=== PATIENT | male | born 1960 | race Caucasian/White ===

== ENCOUNTER 2020-02-15 19:32 | Emergency (ER) | payer BC ==
[2020-02-15] MEDS ORDERED: Lactated Ringers 1,000 ML IV ONE (20:12)
[2020-02-15] MEDS ORDERED: Ondansetron 4 MG/2 ML SDV IVPUSH ONE (20:12)
--- NOTE | 2020-02-15 20:26 | EDM.PDOC ---
ED HPI GENERAL MEDICAL PROBLEM - General Chief Complaint: Fever Stated Complaint: FEVER CHILLS VOMITING Time Seen by Provider: 02/15/20 20:08 - History of Present Illness INITIAL COMMENTS - FREE TEXT/NARRATIVE: 59-year-old male presents the emergency room with fevers chills nausea and vomiting. This has been going on for several days now. He was seen in the clinic yesterday no specific diagnosis his labs look good he had a COVID test done that was negative. Patient continues to have fevers abdominal discomfort nausea and vomiting. Patient also has a headache, and he states his has been having some headaches as well but much milder. The patient may have diminished smell and taste capabilities. He does bring up that he has been working with some birds, some [employer] and wonders if he could have caught something from them. He did notice a lot of the birds had been dying. Generalized Pain Score (Numeric/FACES): 8 - Related Data Allergies Allergy/AdvReac Type Severity Reaction Status Date / Time oseltamivir [From Tamiflu] Allergy Fatigue Verified 02/15/20 19:50 Penicillins Allergy Cannot Verified 02/15/20 19:50 Remember vancomycin Allergy Cannot Verified 02/15/20 19:50 Remember Home Meds: Home Meds Aspirin [Halfprin] 81 mg PO DAILY 03/10/19 [History] Metoprolol Succinate [Toprol Xl] 100 mg PO DAILY 03/10/19 [History] Cholecalciferol (Vitamin D3) [Vitamin D3] 4,000 unit PO DAILY 02/15/20 [History] Green Tea [place] Extract [Green Tea Extract] 500 mg PO DAILY 02/15/20 [History] Past Medical History HEENT History: Reports: Impaired Vision Other HEENT History: wears glasses Other Gastrointestinal History: spleenectomy and bowel obstruction - Past Surgical History HEENT Surgical History: Reports: Eye Surgery GI Surgical History: Reports: Appendectomy Social & Family History - Tobacco Use Smoking Status *Q: Never Smoker - Caffeine Use Caffeine Use: Reports: Soda, Tea - Recreational Drug Use Recreational Drug Use: No ED ROS GENERAL - Review of Systems Review Of Systems: See Below Constitutional: Reports: Weakness, Fatigue. Denies: No Symptoms, Fever, Chills HEENT: Reports: No Symptoms Respiratory: Reports: No Symptoms Cardiovascular: Reports: No Symptoms GI/Abdominal: Reports: Constipation, Nausea, Vomiting. Denies: Black Stool, Bloody Stool : Reports: No Symptoms Musculoskeletal: Reports: No Symptoms Skin: Reports: No Symptoms Neurological: Reports: Headache. Denies: No Symptoms, Confusion, Dizziness, Numbness Psychiatric: Reports: No Symptoms Hematologic/Lymphatic: Reports: No Symptoms Immunologic: Reports: No Symptoms ED EXAM, GENERAL - Physical Exam Exam: See Below Exam Limited By: No Limitations General Appearance: Alert, No Apparent Distress, Other (Mild tachycardia no acute distress) Eye Exam: Bilateral Eye: Normal Inspection Ears: Normal External Exam, Normal Canal, Hearing Grossly Normal, Normal TMs Nose: Normal Inspection, Normal Mucosa, No Blood Throat/Mouth: Normal Inspection, Normal Lips, Normal Teeth, Normal Gums, Normal Oropharynx, Normal Voice, No Airway Compromise Head: Atraumatic, Normocephalic Neck: Normal Inspection, Supple, Non-Tender, Full Range of Motion. No: Lymphadenopathy (L), Lymphadenopathy (R) Respiratory/Chest: No Respiratory Distress, Lungs Clear, Normal Breath Sounds Cardiovascular: Regular Rate, Rhythm, No Edema, No Murmur GI/Abdominal: Normal Bowel Sounds, Soft, Non-Tender Back Exam: Normal Inspection. No: CVA Tenderness (L), CVA Tenderness (R) Extremities: Normal Inspection, No Pedal Edema Neurological: Alert, Oriented, Normal Cognition Skin Exam: Warm, Dry, Intact Course - Vital Signs Last Recorded V/S: Last Vital Signs Temp 37.2 C 02/15/20 19:47 Pulse 105 H 02/15/20 19:47 Resp 16 02/15/20 19:47 BP 106/72 02/15/20 19:47 Pulse Ox 96 02/15/20 19:47 - Orders/Labs/Meds Orders: Active Orders 24 hr Category Date Time Status CORONAVIRUS COVID-19 PCR [facility] Stat Lab 02/15/20 21:40 Received Labs: Laboratory Tests 02/15/20 02/15/20 02/15/20 Range/Units 19:55 20:30 20:30 WBC 10.69 H (4.23-9.07) K/mm3 RBC 4.74 (4.63-6.08) M/mm3 Hgb 15.6 (13.7-17.5) gm/dl Hct 44.8 (40.1-51.0) % MCV 94.5 H (79.0-92.2) fl MCH 32.9 H (25.7-32.2) pg MCHC 34.8 (32.2-35.5) g/dl RDW Std Deviation 51.7 H (35.1-43.9) fL Plt Count 159 L (163-337) K/mm3 MPV 11.9 (9.4-12.3) fl Neut % (Auto) 69.5 H (34.0-67.9) % Lymph % (Auto) 15.3 L (21.8-53.1) % [place] % (Auto) 14.6 H (5.3-12.2) % Eos % (Auto) 0.1 L (0.8-7.0) Baso % (Auto) 0.3 (0.1-1.2) % Neut # (Auto) 7.43 H (1.78-5.38) K/mm3 Lymph # (Auto) 1.64 (1.32-3.57) K/mm3 [place] # (Auto) 1.56 H (0.30-0.82) K/mm3 Eos # (Auto) 0.01 L (0.04-0.54) K/mm3 Baso # (Auto) 0.03 (0.01-0.08) K/mm3 Manual Slide Review Abnormal smear Sodium 135 L (136-145) mEq/L Potassium 3.8 (3.5-5.1) mEq/L Chloride 100 (98-107) mEq/L Carbon Dioxide 24 (21-32) mEq/L Anion Gap 14.8 (5-15) BUN 17 (7-18) mg/dL Creatinine 1.2 (0.7-1.3) mg/dL Est Cr Clr Drug Dosing TNP Estimated GFR (MDRD) > 60 (>60) mL/min BUN/Creatinine Ratio 14.2 (14-18) Glucose 123 H (80-115) mg/dL Calcium 8.7 (8.5-10.1) mg/dL Total Bilirubin 0.6 (0.2-1.0) mg/dL AST 38 H (15-37) U/L ALT 62 (16-63) U/L Alkaline Phosphatase 48 (46-116) U/L Total Protein 7.5 (6.4-8.2) g/dl Albumin 3.6 (3.4-5.0) g/dl Globulin 3.9 gm/dL Albumin/Globulin Ratio 0.9 L (1-2) Lipase 108 (73-393) U/L Urine Color Yellow (Yellow) Urine Appearance Clear (Clear) Urine pH 5.5 (5.0-8.0) Ur Specific [place] 1.025 (1.005-1.030) Urine Protein Negative (Negative) Urine Glucose (UA) Negative (Negative) Urine Ketones Negative (Negative) Urine Occult Blood Negative (Negative) Urine Nitrite Negative (Negative) Urine Bilirubin Negative (Negative) Urine Urobilinogen 0.2 (0.2-1.0) Ur Leukocyte Esterase Negative (Negative) Urine RBC 0-5 (0-5) /hpf Urine WBC 0-5 (0-5) /hpf Ur Squamous Epith Cells 0-5 (0-5) /hpf Urine Bacteria Rare (FEW) /hpf Urine Mucus Moderate H (FEW) /hpf Meds: Medications Discontinued Medications Generic Name Dose Route Start Last Admin Trade Name Freq PRN Reason Stop Dose Admin Lactated Ringer's 1,000 mls @ 999 mls/hr 02/15/20 20:12 02/15/20 20:32 Ringers, Lactated IV 02/15/20 21:12 999 mls/hr .BOLUS ONE Administration Ondansetron HCl 4 mg 02/15/20 20:12 02/15/20 20:32 Zofran IVPUSH 02/15/20 20:13 4 mg ONETIME ONE Administration - Re-Assessments/Exams Free Text/Narrative Re-Assessment/Exam: 02/15/20 21:34 Laboratory evaluation is really unremarkable he is got a minimally elevated white count. He is doing a little better with some IV fluids. With his exposure to the birds that could be carriers of Salmonella but did discuss possibility of a Salmonella meningitis this is exceedingly rare in adults and he has absolutely no evidence of nuchal rigidity in the sitting position he has absolutely no restriction in his neck motion or neck tenderness with motion. However did offer to evaluate him for this he would like to hold off on this at this point understanding that it involves a CT and LP. With further discussion I am not convinced he has intact smell and taste we will screen him for COVID albeit he had a negative COVID screen yesterday. Departure - Departure Time of Disposition: 21:36 Disposition: Home, Self-Care 01 Clinical Impression: Gastroenteritis - Discharge Information Instructions: Viral Gastroenteritis, Adult, [id number] Referrals: Michelle Allison MD [Primary Care Provider] - Forms: ED Department Discharge Additional Instructions: Return to the emergency room with any questions problems or worsening symptoms. Clear liquid diet for the next 24 hours and then slowly advance as tolerated. From the machine out the waiting room have given you #10 Zofran tablets these will dissolve on or under your tongue use 1 every 6 hours as needed for nausea and vomiting. Follow-up with your regular physician the middle of this next week if needed. You have been screened for COVID the results of this should be back by Sunday or Sunday. With this pandemic it is recommended that you stay fairly well isolated and absolutely symptom-free for at least 72 hours after you have had no fevers or no symptoms. Sepsis Event Note (ED) - Evaluation Sepsis Screening Result: Possible Sepsis Risk - My Orders Last 24 Hours: My Active Orders 02/15/20 21:40 CORONAVIRUS COVID-19 PCR [facility] Stat - Assessment/Plan Last 24 Hours: My Active Orders 02/15/20 21:40 CORONAVIRUS COVID-19 PCR [facility] Stat
== END 2020-02-15 21:54 | disposition home or self-care (01) ==
LOC: JD.ED 19:32
DX: K52.9 Noninfective gastroenteritis and colitis, unspecified (principal); Z88.1 Allergy status to other antibiotic agents; Z88.0 Allergy status to penicillin; Z79.82 Long term (current) use of aspirin; Z20.828 Contact with and (suspected) exposure to other viral communicable diseases
CPT/HCPCS: 36415; 80053; 81001; 83690; 85025; 87635; 96361; 96374; 99284; J2405; J7120; 99283; U0002

== ENCOUNTER 2020-02-18 03:36 | Inpatient (IN) | payer BC, OTHER ==
--- NOTE | 2020-02-18 03:44 | EDM.PDOC ---
ED HPI GENERAL MEDICAL PROBLEM - General Chief Complaint: General Stated Complaint: [facility] Time Seen by Provider: 02/18/20 03:43 - History of Present Illness INITIAL COMMENTS - FREE TEXT/NARRATIVE: 59-year-old male brought in by EMS after developing significant lightheadedness with standing up. Shortly before arrival the patient tried to stand up to go to the bathroom and developed significant lightheadedness. He saw stars and was barely able to catch himself. The patient was diagnosed with acute gastroenteritis couple of days ago started on Zofran the nausea is doing much better but he still has persistent diarrhea. EMS got a rhythm strip that showed that he was in atrial fibrillation. Upon arrival here he was still in atrial fibrillation rate in the low 100s to 130. The patient has a history of hypotension perhaps related to taking Toprol XL 100 mg a day. He takes this because about 12 years ago when he was started on it the top part of his heart was doing something different than the bottom part of his heart as he puts it. The patient is not on blood thinners. He has no history of hypertension coronary artery disease or diabetes. The patient feels weak and tired. He does state at times he comes back and rest of the house because his heart feels tired. Treatments DIRECTOR METABOLISM: Reports: IV/IO - Related Data Allergies Allergy/AdvReac Type Severity Reaction Status Date / Time oseltamivir [From Tamiflu] Allergy Fatigue Verified 02/18/20 20:15 Penicillins Allergy Cannot Verified 02/18/20 20:15 Remember vancomycin Allergy Cannot Verified 02/18/20 20:15 Remember Home Meds: Home Meds Aspirin [Halfprin] 81 mg PO DAILY 03/10/19 [History] Metoprolol Succinate [Toprol Xl] 100 mg PO DAILY 03/10/19 [History] Cholecalciferol (Vitamin D3) [Vitamin D3] 4,000 unit PO DAILY 02/15/20 [History] Green Tea [place] Extract [Green Tea Extract] 500 mg PO DAILY 02/15/20 [History] Ascorbic Acid [Vitamin C] 500 mg PO DAILY 02/18/20 [History] Multivit-Min/Folic/Vit K/Lycop [Men's Multivitamin Tablet] 1 tab PO DAILY 02/18/20 [History] Saw/Vit E/Sod [place]/Lyc/Beta/Pyg [Prostate Health Caplet] 1 tab PO DAILY 02/18/20 [History] Past Medical History HEENT History: Reports: Impaired Vision Other HEENT History: wears glasses Other Gastrointestinal History: spleenectomy and bowel obstruction - Past Surgical History HEENT Surgical History: Reports: Eye Surgery GI Surgical History: Reports: Appendectomy Social & Family History - Caffeine Use Caffeine Use: Reports: Soda, Tea ED ROS GENERAL - Review of Systems Review Of Systems: See Below Constitutional: Reports: Malaise, Weakness, Fatigue. Denies: Fever, Chills HEENT: Reports: No Symptoms Respiratory: Reports: No Symptoms Cardiovascular: Reports: Blood Pressure Problem (He often has low blood pressure). Denies: Chest Pain, Dyspnea on Exertion, Edema Endocrine: Reports: No Symptoms GI/Abdominal: Reports: Diarrhea, Nausea (Nausea well controlled with Zofran) : Reports: No Symptoms Musculoskeletal: Reports: No Symptoms Skin: Reports: No Symptoms Neurological: Reports: No Symptoms ED EXAM, GENERAL - Physical Exam Exam: See Below Exam Limited By: No Limitations General Appearance: Alert, No Apparent Distress, Other (He has an obvious A. fib on the monitor rate 100-130s ) Head: Atraumatic, Normocephalic Neck: Normal Inspection, Supple, Non-Tender, Full Range of Motion Respiratory/Chest: No Respiratory Distress, Lungs Clear, Normal Breath Sounds Cardiovascular: Regular Rate, Rhythm, No Edema, No Murmur GI/Abdominal: Normal Bowel Sounds, Soft, Tender (Discomfort no localizing symptoms discomfort is fairly mild) Back Exam: Normal Inspection. No: CVA Tenderness (L), CVA Tenderness (R) Extremities: Normal Inspection, No Pedal Edema Course - Vital Signs Last Recorded V/S: Last Vital Signs Temp 37.1 C 02/19/20 04:35 Pulse 65 02/19/20 04:35 Resp 20 02/19/20 01:41 BP 120/54 L 02/19/20 01:41 Pulse Ox 91 L 02/19/20 04:35 - Orders/Labs/Meds Orders: Medication Orders Acetaminophen (Tylenol) 650 mg PO Q4H PRN PRN Reason: Pain (Mild 1-3)/fever Last Admin: 02/19/20 01:35 Dose: 650 mg Documented by: Admin: 02/18/20 19:22 Dose: 650 mg Documented by: Admin: 02/18/20 11:21 Dose: 650 mg Documented by: RIRI Aspirin (Halfprin) 81 mg PO DAILY [facility] Digoxin (Lanoxin) 125 mcg PO DAILY [facility] Enoxaparin Sodium (Lovenox) 40 mg SUBCUT Q24H [facility] Last Admin: 02/18/20 11:20 Dose: 40 mg Documented by: RIRI Ceftriaxone Sodium 2 gm/ (Sodium Chloride) 100 mls @ 200 mls/hr IV Q24H [facility] Doxycycline Hyclate 100 mg/ (Sodium Chloride) 100 mls @ 100 mls/hr IV Q12HR [facility] Ibuprofen (Motrin) 600 mg PO Q6H PRN PRN Reason: Pain/Fever Last Admin: 02/19/20 04:36 Dose: 600 mg Documented by: DOROTA Ondansetron HCl (Zofran) 4 mg IV Q4H PRN PRN Reason: Nausea/Vomiting Last Admin: 02/18/20 12:15 Dose: 4 mg Documented by: RIRI Labs: Laboratory Tests 02/18/20 02/18/20 02/18/20 Range/Units 03:41 03:41 03:41 WBC 10.54 H (4.23-9.07) K/mm3 RBC 4.70 (4.63-6.08) M/mm3 Hgb 15.3 (13.7-17.5) gm/dl Hct 44.7 (40.1-51.0) % MCV 95.1 H (79.0-92.2) fl MCH 32.6 H (25.7-32.2) pg MCHC 34.2 (32.2-35.5) g/dl RDW Std Deviation 52.5 H (35.1-43.9) fL Plt Count 164 (163-337) K/mm3 MPV 12.3 (9.4-12.3) fl Neut % (Auto) 66.2 (34.0-67.9) % Lymph % (Auto) 17.9 L (21.8-53.1) % [place] % (Auto) 15.4 H (5.3-12.2) % Eos % (Auto) 0.1 L (0.8-7.0) Baso % (Auto) 0.2 (0.1-1.2) % Neut # (Auto) 6.98 H (1.78-5.38) K/mm3 Lymph # (Auto) 1.89 (1.32-3.57) K/mm3 [place] # (Auto) 1.62 H (0.30-0.82) K/mm3 Eos # (Auto) 0.01 L (0.04-0.54) K/mm3 Baso # (Auto) 0.02 (0.01-0.08) K/mm3 Manual Slide Review Abnormal smear PT 11.9 (9.7-12.0) SECONDS INR 1.11 APTT 29 (22-31) SECONDS Sodium 135 L (136-145) mEq/L Potassium 3.8 (3.5-5.1) mEq/L Chloride 100 (98-107) mEq/L Carbon Dioxide 25 (21-32) mEq/L Anion Gap 13.8 (5-15) BUN 17 (7-18) mg/dL Creatinine 1.6 H (0.7-1.3) mg/dL Est Cr Clr Drug Dosing 56.37 mL/min Estimated GFR (MDRD) 44 (>60) mL/min BUN/Creatinine Ratio 10.6 L (14-18) Glucose 123 H (80-115) mg/dL Calcium 8.8 (8.5-10.1) mg/dL Magnesium 2.0 (1.8-2.4) mg/dl Total Bilirubin 0.8 (0.2-1.0) mg/dL AST 42 H (15-37) U/L ALT 64 H (16-63) U/L Alkaline Phosphatase 49 (46-116) U/L Troponin I < 0.017 (0.00-0.056) ng/mL Total Protein 7.2 (6.4-8.2) g/dl Albumin 3.3 L (3.4-5.0) g/dl Globulin 3.9 gm/dL Albumin/Globulin Ratio 0.9 L (1-2) COVID-19 (TAMARA) (NEGATIVE) 02/18/20 Range/Units 07:05 WBC (4.23-9.07) K/mm3 RBC (4.63-6.08) M/mm3 Hgb (13.7-17.5) gm/dl Hct (40.1-51.0) % MCV (79.0-92.2) fl MCH (25.7-32.2) pg MCHC (32.2-35.5) g/dl RDW Std Deviation (35.1-43.9) fL Plt Count (163-337) K/mm3 MPV (9.4-12.3) fl Neut % (Auto) (34.0-67.9) % Lymph % (Auto) (21.8-53.1) % [place] % (Auto) (5.3-12.2) % Eos % (Auto) (0.8-7.0) Baso % (Auto) (0.1-1.2) % Neut # (Auto) (1.78-5.38) K/mm3 Lymph # (Auto) (1.32-3.57) K/mm3 [place] # (Auto) (0.30-0.82) K/mm3 Eos # (Auto) (0.04-0.54) K/mm3 Baso # (Auto) (0.01-0.08) K/mm3 Manual Slide Review PT (9.7-12.0) SECONDS INR APTT (22-31) SECONDS Sodium (136-145) mEq/L Potassium (3.5-5.1) mEq/L Chloride (98-107) mEq/L Carbon Dioxide (21-32) mEq/L Anion Gap (5-15) BUN (7-18) mg/dL Creatinine (0.7-1.3) mg/dL Est Cr Clr Drug Dosing mL/min Estimated GFR (MDRD) (>60) mL/min BUN/Creatinine Ratio (14-18) Glucose (80-115) mg/dL Calcium (8.5-10.1) mg/dL Magnesium (1.8-2.4) mg/dl Total Bilirubin (0.2-1.0) mg/dL AST (15-37) U/L ALT (16-63) U/L Alkaline Phosphatase (46-116) U/L Troponin I (0.00-0.056) ng/mL Total Protein (6.4-8.2) g/dl Albumin (3.4-5.0) g/dl Globulin gm/dL Albumin/Globulin Ratio (1-2) COVID-19 ([facility]ARA) Negative (NEGATIVE) Meds: Medications Generic Name Dose Route Start Last Admin Trade Name Freq PRN Reason Stop Dose Admin Acetaminophen 650 mg 0812/20 10:52 02/19/20 01:35 Tylenol PO 650 mg Q4H PRN Administration Pain (Mild 1-3)/fever Aspirin 81 mg 02/19/20 09:00 Halfprin PO DAILY [facility] Digoxin 125 mcg 02/19/20 09:00 Lanoxin PO DAILY [facility] Enoxaparin Sodium 40 mg 02/18/20 12:00 02/18/20 11:20 Lovenox SUBCUT 40 mg Q24H [facility] Administration Ceftriaxone Sodium 2 gm/ 100 mls @ 200 mls/hr 02/19/20 07:30 Sodium Chloride IV Q24H [facility] Doxycycline Hyclate 100 mg/ 100 mls @ 100 mls/hr 02/19/20 09:00 Sodium Chloride IV Q12HR [facility] Ibuprofen 600 mg 02/19/20 03:58 02/19/20 04:36 Motrin PO 600 mg Q6H PRN Administration Pain/Fever Ondansetron HCl 4 mg 02/18/20 10:52 02/18/20 12:15 Zofran IV 4 mg Q4H PRN Administration Nausea/Vomiting Discontinued Medications Generic Name Dose Route Start Last Admin Trade Name Freq PRN Reason Stop Dose Admin Digoxin 250 mcg 02/18/20 05:10 02/18/20 05:35 Lanoxin PO 02/18/20 05:11 250 mcg ONETIME ONE Administration Digoxin 250 mcg 02/18/20 11:00 02/18/20 11:20 Lanoxin PO 02/18/20 11:01 250 mcg ONETIME ONE Administration Lactated Ringer's 500 mls @ 999 mls/hr 02/18/20 03:53 02/18/20 03:59 Ringers, Lactated IV 02/18/20 04:23 999 mls/hr .BOLUS ONE Administration Lactated Ringer's 1,000 mls @ 125 mls/hr 02/18/20 04:00 02/18/20 11:23 Ringers, Lactated IV 125 mls/hr ASDIRECTED [facility] Administration Sodium Chloride 500 mls @ 999 mls/hr 02/18/20 05:02 02/18/20 05:15 Normal Saline IV 02/18/20 05:32 999 mls/hr .BOLUS ONE Administration - Re-Assessments/Exams Free Text/Narrative Re-Assessment/Exam: 02/18/20 05:11 I have attempted to 500 cc boluses with LR to try and get his pulse rate a l ittle more controllable his blood pressure goes up and he is getting the fluid but in between boluses comes back down. It is unclear to me how long he has been in A. fib he has been on the Toprol for probably 12 years as it was explained to him the top part of the heart is doing some different from the bottom part of the heart. He has no history of coronary artery disease no diabetes. He has a low chads 2 score. I discussed the situation with Dr. 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 The patient does have problems with really low blood pressure and perhaps with the addition of digoxin we can back off his Toprol-XL. Departure - Departure Time of Disposition: 08:00 Disposition: Refer to Observation Clinical Impression: A-fib, Dehydration - Discharge Information Sepsis Event Note (ED) - Evaluation Sepsis Screening Result: No Definite Risk
[2020-02-18] MEDS ORDERED: Lactated Ringers 500 ML IV ONE (03:53)
[2020-02-18] MEDS ORDERED: Lactated Ringers 1,000 ML IV SCH (04:00)
[2020-02-18] MEDS ORDERED: Sodium Chloride 0.9% 500 ML IV ONE (05:02)
[2020-02-18] MEDS ORDERED: Digoxin 250 MCG Tab PO ONE ×2 (05:10→11:00)
--- NOTE | 2020-02-18 09:13 | CR ---
Cysts chest: Portable view of the chest was obtained. Comparison: Prior chest CT study of 03/10/19, no previous chest x-ray is available. Heart size and mediastinum are normal. Lungs are clear with no acute parenchymal change. Bony structures are grossly intact. Impression: 1. Nothing acute is appreciated on portable chest x-ray. Diagnostic code #1 This report was dictated in MDT
[2020-02-18] MEDS ORDERED: Ondansetron 4 MG/2 ML SDV IV PRN (10:52)
[2020-02-18] MEDS: Enoxaparin 40 MG/0.4 ML Syringe SUBCUT SCH (11:20)
[2020-02-18] MEDS: Acetaminophen 325 MG Tab PO PRN ×2 (11:21→19:22)
--- NOTE | 2020-02-18 12:58 | PCM.HP.2 ---
H&P History of Present Illness - General Date of Service: 02/18/20 Admit Problem/Dx: Admission Diagnosis/Problem Admission Diagnosis/Problem Atrial fibrillation - History of Present Illness Initial Comments - Free Text/Narative: 59-year-old male with a 5-day history of generalized malaise, fever, chills, headache, and mild cough. Patient states that last night he had worsening dizziness and lightheadedness. He felt like he was on fire in his scalp was burning. He was seen at the clinic 4 days ago, in the emergency department 3 days ago, and presented last night to the emergency department again. All 3 t imes he had a negative COVID test. He states he continues to have a fever which has been greater than 100 and shaking chills. He states he had nausea and vomiting over the weekend that stopped yesterday, but he did develop some diarrhea. 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 He has not had a bowel movement since arriving at the emergency department. Chest x-ray in the emergency department was negative. He is on Toprol-XL secondary to irregular heart rate. He states he was started on it approximately 12 years ago. He denies hypertension, coronary artery disease, or diabetes. He has never been placed on a blood thinner. In the emergency department he was found to be in A. fib with his rate in the low 100s up to 130. Patient was given a 500 mL normal saline bolus and started on 125 mL an hour. Emergency department provider called Dr. Roberson, hematology supervisor at [facility] in [place] who recommended starting patient on digoxin 0.25 mg now and then again in 6 hours. Then continue with 0.125 mg daily as well as aggressive fluid management. When patient was brought to the floor for observation his heart rate stabilized mostly in the 80s and converted to sinus rhythm pulse ox did drop into the upper 80s between 87-89. He was started on 2 L nasal cannula. He received his second dose of digoxin. Initial lab work was only significant for WBC of 10.54, creatinine of 1.6, estimated GFR 44, AST 42, ALT 64. COVID was negative. - Related Data Allergies/Adverse Reactions: Allergies Allergy/AdvReac Type Severity Reaction Status Date / Time oseltamivir [From Tamiflu] Allergy Fatigue Verified 02/18/20 03:41 Penicillins Allergy Cannot Verified 02/18/20 03:41 Remember vancomycin Allergy Cannot Verified 02/18/20 03:41 Remember Home Medications: Home Meds Aspirin [Halfprin] 81 mg PO DAILY 03/10/19 [History] Metoprolol Succinate [Toprol Xl] 100 mg PO DAILY 03/10/19 [History] Cholecalciferol (Vitamin D3) [Vitamin D3] 4,000 unit PO DAILY 02/15/20 [History] Green Tea [place] Extract [Green Tea Extract] 500 mg PO DAILY 02/15/20 [History] Past Medical History HEENT History: Reports: Impaired Vision Other HEENT History: wears glasses Cardiovascular History: Reports: Afib Other Gastrointestinal History: spleenectomy and bowel obstruction Musculoskeletal History: Reports: Other (See Below) Other Musculoskeletal History: cortisone shot to left elbow every 4 months for "tennis elbow" Neurological History: Reports: Headaches, Chronic - Infectious Disease History Infectious Disease History: Reports: None - Past Surgical History HEENT Surgical History: Reports: Eye Surgery GI Surgical History: Reports: Appendectomy Social & Family History - Tobacco Use Smoking Status *Q: Never Smoker Used Tobacco, but Quit: Yes Month/Year Tobacco Last Used: 1982 - Caffeine Use Caffeine Use: Reports: Soda - Recreational Drug Use Recreational Drug Use: No H&P Review of Systems - Review of Systems: Review Of Systems: Comprehensive ROS is negative, except as noted in HPI. Exam - Exam Exam: See Below - Vital Signs Vital Signs: Last Vital Signs Temp 98.1 F 02/18/20 08:25 Pulse 84 02/18/20 11:20 Resp 24 H 02/18/20 08:25 BP 120/68 02/18/20 08:25 Pulse Ox 93 L 02/18/20 08:25 Weight: 106.912 kg - Exam Quality Assessment: Supplemental Oxygen HEENT: Conjunctiva Clear, Hearing Intact, Mucosa Moist & [place] Neck: Supple, Trachea Midline, 2 Lungs: Clear to Auscultation, Normal Respiratory Effort Cardiovascular: Regular Rate, Regular Rhythm GI/Abdominal Exam: Normal Bowel Sounds, Soft, Non-Tender, No Organomegaly, No Distention, No Abnormal Bruit Back Exam: Normal Inspection Extremities: Normal Inspection, Normal Range of Motion, Non-Tender, No Pedal Edema, Normal Capillary Refill Peripheral Pulses: 2+: Posterior Tibial (L), Posterior Tibial (R), Dorsalis Pedis (L), Dorsalis Pedis (R) Skin: Warm, Dry, Intact Neurological: Cranial Nerves Intact Neuro Extensive - Mental Status: Alert, Oriented x3 Neuro Extensive - Motor, Sensory, Reflexes: CN II-XII Intact Psychiatric: Alert, Normal Affect, Normal Mood - Patient Data Lab Results Last 24 hrs: Laboratory Results - last 24 hr 02/18/20 02/18/20 02/18/20 Range/Units 03:41 03:41 03:41 WBC 10.54 H (4.23-9.07) K/mm3 RBC 4.70 (4.63-6.08) M/mm3 Hgb 15.3 (13.7-17.5) gm/dl Hct 44.7 (40.1-51.0) % MCV 95.1 H (79.0-92.2) fl MCH 32.6 H (25.7-32.2) pg MCHC 34.2 (32.2-35.5) g/dl RDW Std Deviation 52.5 H (35.1-43.9) fL Plt Count 164 (163-337) K/mm3 MPV 12.3 (9.4-12.3) fl Neut % (Auto) 66.2 (34.0-67.9) % Lymph % (Auto) 17.9 L (21.8-53.1) % [place] % (Auto) 15.4 H (5.3-12.2) % Eos % (Auto) 0.1 L (0.8-7.0) Baso % (Auto) 0.2 (0.1-1.2) % Neut # (Auto) 6.98 H (1.78-5.38) K/mm3 Lymph # (Auto) 1.89 (1.32-3.57) K/mm3 [place] # (Auto) 1.62 H (0.30-0.82) K/mm3 Eos # (Auto) 0.01 L (0.04-0.54) K/mm3 Baso # (Auto) 0.02 (0.01-0.08) K/mm3 Manual Slide Review Abnormal smear PT 11.9 (9.7-12.0) SECONDS INR 1.11 APTT 29 (22-31) SECONDS Sodium 135 L (136-145) mEq/L Potassium 3.8 (3.5-5.1) mEq/L Chloride 100 (98-107) mEq/L Carbon Dioxide 25 (21-32) mEq/L Anion Gap 13.8 (5-15) BUN 17 (7-18) mg/dL Creatinine 1.6 H (0.7-1.3) mg/dL Est Cr Clr Drug Dosing 56.37 mL/min Estimated GFR (MDRD) 44 (>60) mL/min BUN/Creatinine Ratio 10.6 L (14-18) Glucose 123 H (80-115) mg/dL Calcium 8.8 (8.5-10.1) mg/dL Magnesium 2.0 (1.8-2.4) mg/dl Total Bilirubin 0.8 (0.2-1.0) mg/dL AST 42 H (15-37) U/L ALT 64 H (16-63) U/L Alkaline Phosphatase 49 (46-116) U/L Troponin I < 0.017 (0.00-0.056) ng/mL Total Protein 7.2 (6.4-8.2) g/dl Albumin 3.3 L (3.4-5.0) g/dl Globulin 3.9 gm/dL Albumin/Globulin Ratio 0.9 L (1-2) COVID-19 (TAMARA) (NEGATIVE) 02/18/20 02/18/20 Range/Units 07:05 09:58 WBC (4.23-9.07) K/mm3 RBC (4.63-6.08) M/mm3 Hgb (13.7-17.5) gm/dl Hct (40.1-51.0) % MCV (79.0-92.2) fl MCH (25.7-32.2) pg MCHC (32.2-35.5) g/dl RDW Std Deviation (35.1-43.9) fL Plt Count (163-337) K/mm3 MPV (9.4-12.3) fl Neut % (Auto) (34.0-67.9) % Lymph % (Auto) (21.8-53.1) % [place] % (Auto) (5.3-12.2) % Eos % (Auto) (0.8-7.0) Baso % (Auto) (0.1-1.2) % Neut # (Auto) (1.78-5.38) K/mm3 Lymph # (Auto) (1.32-3.57) K/mm3 [place] # (Auto) (0.30-0.82) K/mm3 Eos # (Auto) (0.04-0.54) K/mm3 Baso # (Auto) (0.01-0.08) K/mm3 Manual Slide Review PT (9.7-12.0) SECONDS INR APTT (22-31) SECONDS Sodium 139 (136-145) mEq/L Potassium 4.6 (3.5-5.1) mEq/L Chloride 103 (98-107) mEq/L Carbon Dioxide 27 (21-32) mEq/L Anion Gap 13.6 (5-15) BUN 16 (7-18) mg/dL Creatinine 1.3 (0.7-1.3) mg/dL Est Cr Clr Drug Dosing 69.38 mL/min Estimated GFR (MDRD) 56 (>60) mL/min BUN/Creatinine Ratio 12.3 L (14-18) Glucose 106 (80-115) mg/dL Calcium 8.8 (8.5-10.1) mg/dL Magnesium (1.8-2.4) mg/dl Total Bilirubin (0.2-1.0) mg/dL AST (15-37) U/L ALT (16-63) U/L Alkaline Phosphatase (46-116) U/L Troponin I < 0.017 (0.00-0.056) ng/mL Total Protein (6.4-8.2) g/dl Albumin (3.4-5.0) g/dl Globulin gm/dL Albumin/Globulin Ratio (1-2) COVID-19 (TAMARA) Negative (NEGATIVE) Result Diagrams: 02/18/20 03:41 02/18/20 09:58 EKG INTERPRETATION EKG Date: 02/18/20 Time: 03:39 Rhythm: A-Fib Rate (Beats/Min): 116 [place]: Normal P-Wave: Absent QRS: Other (PVC, abn R wave progression) QT: Normal Sepsis Event Note - Evaluation Sepsis Screening Result: No Definite Risk - Focused Exam Vital Signs: Vital Signs Temp Temp Pulse Pulse Resp BP BP 02/18/20 11:20 84 02/18/20 08:25 98.1 F 65 24 H 120/68 02/18/20 05:35 110 H 02/18/20 03:38 97.7 F 114 H 12 95/65 Pulse Ox 02/18/20 11:20 02/18/20 08:25 93 L 02/18/20 05:35 02/18/20 03:38 88 L Problem List Initiated/Reviewed/Updated: Yes Orders Last 24hrs: Active Orders 24 hr Category Date Time Status Admission Status [Patient Status] [ADT] Routine ADT 02/18/20 07:35 Active Oxygen Therapy [RC] PRN Care 02/18/20 10:52 Active Up With Assistance [RC] ASDIRECTED Care 02/18/20 10:52 Active VTE/DVT Education [RC] PER UNIT ROUTINE Care 02/18/20 10:52 Active Vital Signs [RC] Q4H Care 02/18/20 10:52 Active Heart Healthy Diet [DIET] Diet 02/18/20 Lunch Active CBC WITH AUTO DIFF [HEME] AM Lab 02/19/20 05:11 Ordered COMPREHENSIVE METABOLIC PN,CMP [CHEM] AM Lab 02/19/20 05:11 Ordered MAGNESIUM [CHEM] AM Lab 02/19/20 05:11 Ordered Acetaminophen [Tylenol] Med 02/18/20 10:52 Active 650 mg PO Q4H PRN Aspirin [Halfprin] Med 02/19/20 09:00 Active 81 mg PO DAILY Enoxaparin [Lovenox] Med 02/18/20 12:00 Active 40 mg SUBCUT Q24H Lactated Ringers [Ringers, Lactated] 1,000 ml Med 02/18/20 04:00 Active IV ASDIRECTED Ondansetron [Zofran] Med 02/18/20 10:52 Active 4 mg IV Q4H PRN Resuscitation Status Routine Resus Stat 02/18/20 10:52 Ordered Medication Orders Acetaminophen (Tylenol) 650 mg PO Q4H PRN PRN Reason: Pain (Mild 1-3)/fever Last Admin: 02/18/20 11:21 Dose: 650 mg Documented by: RIRI Aspirin (Halfprin) 81 mg PO DAILY FREDI Enoxaparin Sodium (Lovenox) 40 mg SUBCUT Q24H FREDI Last Admin: 02/18/20 11:20 Dose: 40 mg Documented by: RIRI Lactated Ringer's (Ringers, Lactated) 1,000 mls @ 125 mls/hr IV ASDIRECTED FREDI Last Admin: 02/18/20 11:23 Dose: 125 mls/hr Documented by: RIRI Ondansetron HCl (Zofran) 4 mg IV Q4H PRN PRN Reason: Nausea/Vomiting Last Admin: 02/18/20 12:15 Dose: 4 mg Documented by: RIRI Assessment/Plan Comment:: Assessment * Atrial fibrillation with rapid ventricular response * Converted to sinus rhythm after second dose of digoxin 250 mcg * Morning dose of Toprol was held * Repeat EKG at 1312 hrs.: Sinus rhythm with ventricular rate of 87 bpm. Left atrial enlargement. * [id number] is 0 * Gastroenteritis/viral illness * Patient appears to be improved. * He is afebrile and has not vomited or had a bowel movement since presentation to the emergency department * Electrolytes are normal * COVID PCR negative x3 * Acute renal injury * Estimated GFR 44 * Creatinine 1.6 Plan * Observation * Telemetry * Digoxin 0.125 daily * Hold Toprol for now * Low-dose aspirin 81 mg daily * Recheck electrolytes and renal function * Lipid panel in the morning * IV fluids: LR 125 mL an hour. * Echocardiogram * Regular diet as tolerated * CODE STATUS: Full code * VTE prophylaxis with Lovenox * Length of stay less than 48 hours - Mortality Measure Prognosis:: Good
[2020-02-19] MEDS: Acetaminophen 325 MG Tab PO PRN ×2 (01:35→08:54)
[2020-02-19] MEDS ORDERED: Ibuprofen 600 MG Tab PO PRN (03:58)
--- NOTE | 2020-02-19 08:54 | CR ---
Chest: Portable view of the chest was obtained. Comparison: Prior chest x-ray of 02/18/20. Heart size and mediastinum are within normal limits for portable technique. Surgical clips are seen within the left upper abdomen. Lungs are clear with no acute parenchymal change. No gross bony abnormality is appreciated. Impression: 1. Nothing acute is seen on portable chest x-ray. Diagnostic code #1 This report was dictated in MDT I agree with preliminary report from [facility], finalized on 02/19/20, 4:20 AM Central Daylight Time
[2020-02-19] MEDS: Digoxin 125 MCG Tab PO SCH (08:55)
[2020-02-19] MEDS: cefTRIAXone 2 GM in Sodium Chloride 0.9% 100 ML IV SCH (08:55)
[2020-02-19] MEDS: Aspirin 81 MG Tab.EC PO SCH (08:55)
--- NOTE | 2020-02-19 09:52 | CT ---
CT chest Technique: Multiple axial sections through the chest are obtained. Intravenous contrast was utilized. Study performed as a pulmonary protocol. Comparison: Prior chest CT study of 03/10/19 and chest x-ray of 02/19/20 at time 2:15 AM. Findings: Pulmonary arteries are moderately well-opacified. No filling defects are seen within the main or segmental branches or proximal subsegmental branches. Smaller distal subsegmental pulmonary emboli could be missed. Aorta shows no aneurysm. Mediastinum and hilar regions show no adenopathy. No axillary adenopathy is appreciated. Areas of atelectasis is seen within both posterior lung bases. Trace pleural effusions are seen within both lung bases. Scattered areas of pleural thickening are also noted. No acute parenchymal process is definitely appreciated. Impression: 1. No findings of pulmonary embolism within the main, segmental or proximal subsegmental branches. Smaller distal subsegmental pulmonary emboli could be missed. 2. Trace pleural effusions with mild bibasilar atelectasis. 3. Scattered areas of pleural thickening are noted. Diagnostic code #3 Agree with preliminary report issued by [facility], preliminary report finalized on 02/19/20, 6:45 AM Central Time This report was dictated in [place] Standard Time
[2020-02-19] MEDS: Doxycycline 100 MG in Sodium Chloride 0.9% 100 ML IV SCH ×2 (10:01→20:28)
--- NOTE | 2020-02-19 12:11 | PCM.PN ---
- General Info Date of Service: 02/19/20 Admission Dx/Problem (Free Text): Admission Diagnosis/Problem Admission Diagnosis/Problem Atrial fibrillation Subjective Update: Patient states he feels a little better this morning. Unfortunately, he has required increasing in his FiO2 to 5 L/min. Overnight he had low-grade fevers, T-max 100.6, chills, and sweats. Patient had lab work which showed an elevated d-dimer just over 1, ferritin of 1500, normal LDL, and C-reactive protein of 9.8. Patient did convert to sinus rhythm yesterday and has been maintained in sinus rhythm. He is complaining of some dysuria and foul-smelling urine. - Review of Systems General: Reports: Fever, Chills, Night Sweats HEENT: Reports: No Symptoms Pulmonary: Reports: Shortness of Breath Cardiovascular: Reports: No Symptoms Gastrointestinal: Reports: No Symptoms Musculoskeletal: Reports: No Symptoms Skin: Reports: No Symptoms Neurological: Reports: No Symptoms - Patient Data Vitals - Most Recent: Last Vital Signs Temp 97.7 F 02/19/20 11:02 Pulse 68 02/19/20 11:02 Resp 20 02/19/20 11:02 BP 121/65 02/19/20 11:02 Pulse Ox 94 L 02/19/20 11:02 Weight - Most Recent: 106.685 kg I&O - Last 24 Hours: Intake & Output 02/18/20 02/19/20 02/19/20 22:59 06:59 14:59 Intake Total 2353 1720 Output Total 475 975 Balance 1878 745 Imaging Impressions - Last 24 Hours: Chest x-ray with nothing acute. CT angiogram 1. No findings of pulmonary embolism within the main, segmental, or proximal subsegmental branches. Smaller distal and subsegmental pulmonary emboli could be missed. 2. Trace pleural effusions with mild bibasilar atelectasis. 3. Scattered areas of pleural thickening are noted. Lab Results Last 24 Hours: Laboratory Results - last 24 hr 02/19/20 02/19/20 02/19/20 Range/Units 02:30 02:30 02:30 WBC 9.52 H (4.23-9.07) K/mm3 RBC 4.26 L (4.63-6.08) M/mm3 Hgb 13.9 (13.7-17.5) gm/dl Hct 40.3 (40.1-51.0) % MCV 94.6 H (79.0-92.2) fl MCH 32.6 H (25.7-32.2) pg MCHC 34.5 (32.2-35.5) g/dl RDW Std Deviation 52.0 H (35.1-43.9) fL Plt Count 174 (163-337) K/mm3 MPV 11.9 (9.4-12.3) fl Neut % (Auto) 72.7 H (34.0-67.9) % Lymph % (Auto) 16.8 L (21.8-53.1) % [place] % (Auto) 9.8 (5.3-12.2) % Eos % (Auto) 0.1 L (0.8-7.0) Baso % (Auto) 0.4 (0.1-1.2) % Neut # (Auto) 6.92 H (1.78-5.38) K/mm3 Lymph # (Auto) 1.60 (1.32-3.57) K/mm3 [place] # (Auto) 0.93 H (0.30-0.82) K/mm3 Eos # (Auto) 0.01 L (0.04-0.54) K/mm3 Baso # (Auto) 0.04 (0.01-0.08) K/mm3 Manual Slide Review Abnormal smear D-Dimer, Quantitative 1.16 H (0.19-0.50) mg/L Sodium 136 (136-145) mEq/L Potassium 3.6 (3.5-5.1) mEq/L Chloride 100 (98-107) mEq/L Carbon Dioxide 24 (21-32) mEq/L Anion Gap 15.6 H (5-15) BUN 13 (7-18) mg/dL Creatinine 1.1 (0.7-1.3) mg/dL Est Cr Clr Drug Dosing 81.99 mL/min Estimated GFR (MDRD) > 60 (>60) mL/min BUN/Creatinine Ratio 11.8 L (14-18) Glucose 135 H (80-115) mg/dL Lactic Acid (0.4-2.0) mmol/L Calcium 8.2 L (8.5-10.1) mg/dL Magnesium 1.8 (1.8-2.4) mg/dl Ferritin (26-388) ng/ml Total Bilirubin 0.7 (0.2-1.0) mg/dL AST 37 (15-37) U/L ALT 58 (16-63) U/L Alkaline Phosphatase 40 L (46-116) U/L Lactate Dehydrogenase (85-227) U/L C-Reactive Protein (<1.0) mg/dL Total Protein 6.4 (6.4-8.2) g/dl Albumin 2.8 L (3.4-5.0) g/dl Globulin 3.6 gm/dL Albumin/Globulin Ratio 0.8 L (1-2) Triglycerides 109 (<150) mg/dL Cholesterol 135 (<200) mg/dL LDL Cholesterol Direct 94 (<100) mg/dL HDL Cholesterol 15.0 L (40-59) mg/dL SARS Virus RNA (PCR) (NEGATIVE) 02/19/20 02/19/20 02/19/20 Range/Units 02:30 02:30 04:50 WBC (4.23-9.07) K/mm3 RBC (4.63-6.08) M/mm3 Hgb (13.7-17.5) gm/dl Hct (40.1-51.0) % MCV (79.0-92.2) fl MCH (25.7-32.2) pg MCHC (32.2-35.5) g/dl RDW Std Deviation (35.1-43.9) fL Plt Count (163-337) K/mm3 MPV (9.4-12.3) fl Neut % (Auto) (34.0-67.9) % Lymph % (Auto) (21.8-53.1) % [place] % (Auto) (5.3-12.2) % Eos % (Auto) (0.8-7.0) Baso % (Auto) (0.1-1.2) % Neut # (Auto) (1.78-5.38) K/mm3 Lymph # (Auto) (1.32-3.57) K/mm3 [place] # (Auto) (0.30-0.82) K/mm3 Eos # (Auto) (0.04-0.54) K/mm3 Baso # (Auto) (0.01-0.08) K/mm3 Manual Slide Review D-Dimer, Quantitative (0.19-0.50) mg/L Sodium (136-145) mEq/L Potassium (3.5-5.1) mEq/L Chloride (98-107) mEq/L Carbon Dioxide (21-32) mEq/L Anion Gap (5-15) BUN (7-18) mg/dL Creatinine (0.7-1.3) mg/dL Est Cr Clr Drug Dosing mL/min Estimated GFR (MDRD) (>60) mL/min BUN/Creatinine Ratio (14-18) Glucose (80-115) mg/dL Lactic Acid 1.1 (0.4-2.0) mmol/L Calcium (8.5-10.1) mg/dL Magnesium (1.8-2.4) mg/dl Ferritin 1563 H (26-388) ng/ml Total Bilirubin (0.2-1.0) mg/dL AST (15-37) U/L ALT (16-63) U/L Alkaline Phosphatase (46-116) U/L Lactate Dehydrogenase 174 (85-227) U/L C-Reactive Protein 9.8 H* (<1.0) mg/dL Total Protein (6.4-8.2) g/dl Albumin (3.4-5.0) g/dl Globulin gm/dL Albumin/Globulin Ratio (1-2) Triglycerides (<150) mg/dL Cholesterol (<200) mg/dL LDL Cholesterol Direct (<100) mg/dL HDL Cholesterol (40-59) mg/dL SARS Virus RNA (PCR) (NEGATIVE) 02/19/20 Range/Units 07:35 WBC (4.23-9.07) K/mm3 RBC (4.63-6.08) M/mm3 Hgb (13.7-17.5) gm/dl Hct (40.1-51.0) % MCV (79.0-92.2) fl MCH (25.7-32.2) pg MCHC (32.2-35.5) g/dl RDW Std Deviation (35.1-43.9) fL Plt Count (163-337) K/mm3 MPV (9.4-12.3) fl Neut % (Auto) (34.0-67.9) % Lymph % (Auto) (21.8-53.1) % [place] % (Auto) (5.3-12.2) % Eos % (Auto) (0.8-7.0) Baso % (Auto) (0.1-1.2) % Neut # (Auto) (1.78-5.38) K/mm3 Lymph # (Auto) (1.32-3.57) K/mm3 [place] # (Auto) (0.30-0.82) K/mm3 Eos # (Auto) (0.04-0.54) K/mm3 Baso # (Auto) (0.01-0.08) K/mm3 Manual Slide Review D-Dimer, Quantitative (0.19-0.50) mg/L Sodium (136-145) mEq/L Potassium (3.5-5.1) mEq/L Chloride (98-107) mEq/L Carbon Dioxide (21-32) mEq/L Anion Gap (5-15) BUN (7-18) mg/dL Creatinine (0.7-1.3) mg/dL Est Cr Clr Drug Dosing mL/min Estimated GFR (MDRD) (>60) mL/min BUN/Creatinine Ratio (14-18) Glucose (80-115) mg/dL Lactic Acid (0.4-2.0) mmol/L Calcium (8.5-10.1) mg/dL Magnesium (1.8-2.4) mg/dl Ferritin (26-388) ng/ml Total Bilirubin (0.2-1.0) mg/dL AST (15-37) U/L ALT (16-63) U/L Alkaline Phosphatase (46-116) U/L Lactate Dehydrogenase (85-227) U/L C-Reactive Protein (<1.0) mg/dL Total Protein (6.4-8.2) g/dl Albumin (3.4-5.0) g/dl Globulin gm/dL Albumin/Globulin Ratio (1-2) Triglycerides (<150) mg/dL Cholesterol (<200) mg/dL LDL Cholesterol Direct (<100) mg/dL HDL Cholesterol (40-59) mg/dL SARS Virus RNA (PCR) Negative (NEGATIVE) Med Orders - Current: Current Medications Acetaminophen (Tylenol) 650 mg PO Q4H PRN PRN Reason: Pain (Mild 1-3)/fever Last Admin: 02/19/20 08:54 Dose: 650 mg Documented by: Aspirin (Halfprin) 81 mg PO DAILY [facility] Last Admin: 02/19/20 08:55 Dose: 81 mg Documented by: Dexamethasone (Dexamethasone) 6 mg PO DAILY [facility] Stop: 02/29/20 11:31 Digoxin (Lanoxin) 125 mcg PO DAILY [facility] Last Admin: 02/19/20 08:55 Dose: 125 mcg Documented by: Enoxaparin Sodium (Lovenox) 40 mg SUBCUT Q24H [facility] Last Admin: 02/18/20 11:20 Dose: 40 mg Documented by: Ceftriaxone Sodium 2 gm/ (Sodium Chloride) 100 mls @ 200 mls/hr IV Q24H [facility] Last Admin: 02/19/20 08:55 Dose: 200 mls/hr Documented by: Doxycycline Hyclate 100 mg/ (Sodium Chloride) 100 mls @ 100 mls/hr IV Q12HR [facility] Last Admin: 02/19/20 10:01 Dose: 100 mls/hr Documented by: Ibuprofen (Motrin) 600 mg PO Q6H PRN PRN Reason: Pain/Fever Last Admin: 02/19/20 04:36 Dose: 600 mg Documented by: Ondansetron HCl (Zofran) 4 mg IV Q4H PRN PRN Reason: Nausea/Vomiting Last Admin: 02/18/20 12:15 Dose: 4 mg Documented by: Discontinued Medications Digoxin (Lanoxin) 250 mcg PO ONETIME ONE Stop: 02/18/20 05:11 Last Admin: 02/18/20 05:35 Dose: 250 mcg Documented by: Digoxin (Lanoxin) 250 mcg PO ONETIME ONE Stop: 02/18/20 11:01 Last Admin: 02/18/20 11:20 Dose: 250 mcg Documented by: Lactated Ringer's (Ringers, Lactated) 500 mls @ 999 mls/hr IV .BOLUS ONE Stop: 02/18/20 04:23 Last Admin: 02/18/20 03:59 Dose: 999 mls/hr Documented by: Lactated Ringer's (Ringers, Lactated) 1,000 mls @ 125 mls/hr IV ASDIRECTED [facility] Last Admin: 02/18/20 11:23 Dose: 125 mls/hr Documented by: Sodium Chloride (Normal Saline) 500 mls @ 999 mls/hr IV .BOLUS ONE Stop: 02/18/20 05:32 Last Admin: 02/18/20 05:15 Dose: 999 mls/hr Documented by: - Exam Quality Assessment: Supplemental Oxygen General: Alert, Oriented HEENT: Pupils Equal, Mucous Membr. Moist/[place] Neck: Supple Lungs: Clear to Auscultation, Normal Respiratory Effort Cardiovascular: Regular Rate, Regular Rhythm GI/Abdominal Exam: Normal Bowel Sounds, Soft, Non-Tender, No Organomegaly, No Distention, No Abnormal Bruit Extremities: Normal Inspection, Normal Range of Motion, Non-Tender, No Pedal Edema, Normal Capillary Refill Peripheral Pulses: 2+: Posterior Tibial (L), Posterior Tibial (R), Dorsalis Pedis (L), Dorsalis Pedis (R) Skin: Warm, Dry, Intact Neurological: No New Focal Deficit Psy/Mental Status: Alert, Normal Affect, Normal Mood Sepsis Event Note - Evaluation Sepsis Screening Result: No Definite Risk - Focused Exam Vital Signs: Vital Signs Temp Pulse Resp BP Pulse Ox 02/19/20 11:02 97.7 F 68 20 121/65 94 L 02/19/20 10:01 92 L 02/19/20 08:55 90 02/19/20 08:39 97.5 F 83 20 101/59 L 92 L 02/19/20 04:35 98.8 F 65 91 L 02/19/20 04:31 65 89 L 02/19/20 03:42 100.4 F 68 91 L 02/19/20 02:02 78 91 L 02/19/20 01:51 79 88 L 02/19/20 01:41 99.3 F 74 20 120/54 L 87 L - Problem List Review Problem List Initiated/Reviewed/Updated: Yes - My Orders Last 24 Hours: My Active Orders 02/18/20 12:00 Enoxaparin [Lovenox] 40 mg SUBCUT Q24H 02/18/20 13:08 EKG 12 Lead [EK] Stat 02/19/20 02:30 MYCOPLASMA PNEUMONIAE IGM AB [CHEM] Urgent 02/19/20 03:58 Ibuprofen [Motrin] 600 mg PO Q6H PRN 02/19/20 03:59 Blood Culture x2 Reflex Set [OM.PC] Stat 02/19/20 04:00 Isolation [COMM] Routine 02/19/20 04:40 CULTURE BLOOD [BC] Stat 02/19/20 04:50 CULTURE BLOOD [BC] Stat 02/19/20 07:30 cefTRIAXone [Rocephin] 2 gm Sodium Chloride 0.9% [Normal Saline] 100 ml IV Q24H 02/19/20 09:00 Aspirin [Halfprin] 81 mg PO DAILY Digoxin [Lanoxin] 125 mcg PO DAILY Doxycycline [Vibramycin] 100 mg Sodium Chloride 0.9% [Normal Saline] 100 ml IV Q12HR 02/19/20 09:41 UA W/KATERIN RFLX IF INDICATED [URIN] Routine 02/19/20 10:38 Admission Status [Patient Status] [ADT] Routine 02/19/20 10:40 LEGIONELLA ANTIGEN [MREF] Routine RESPIRATORY PANEL Routine STREP PNEUMONIAE ANTIGEN [MREF] Routine 02/19/20 11:16 Consult to Occupational Therapy [OT Evaluation and Treatment] [CONS] Routine PT Evaluation and Treatment [CONS] Routine 02/19/20 11:30 dexAMETHasone 6 mg PO DAILY - Assessment Assessment:: Assessment 02/18/2020day of admission * Atrial fibrillation with rapid ventricular response * Converted to sinus rhythm after second dose of digoxin 250 mcg * Morning dose of Toprol was held * Repeat EKG at 1312 hrs.: Sinus rhythm with ventricular rate of 87 bpm. Left atrial enlargement. * [id number] is 0 * Gastroenteritis/viral illness * Patient appears to be improved. * He is afebrile and has not vomited or had a bowel movement since presentation to the emergency department * Electrolytes are normal * COVID PCR negative x3 * Acute renal injury * Estimated GFR 44 * Creatinine 1.6 02/19/2020 * Atrial fibrillation with rapid ventricular responseresolved * Patient is still in sinus rhythm with rate in the 80s to 90s * Loaded with digoxin yesterday. Now on 125 mcg daily * Stopped Toprol-XL * Awaiting echocardiogram results * Likely COVID-19 infection with hypoxemia * Patient has had worsening of oxygenation, elevated ferritin, positive d- dimer, elevated C-reactive protein and a normal white count. Although he has had 4 - COVID test he still has several suggestive features of COVID- 19. * I spoke with Dr. Renae in infectious disease at [facility] for [facility] in [place] who agreed that he still likely has COVID-19 and recommended starting remdesivir and steroids. * I was able to contact Amira at the [facility] department and she is sending a full course of remdesivir via [employer]. He will get the first course as soon as we get it. * GI symptoms have significantly improved. * Dysuria with mild foul-smelling urine * UA negative for infection * Likely not clinically significant * Acute renal injury resolved * Estimated GFR greater than 60 - Plan Plan:: Plan * Change to inpatient status on telemetry * Start remdesivir as soon as available * Dexamethasone 6 mg orally daily for 10 days * Encourage prone positioning * If oxygen need increases will switch to high flow nasal cannula * Follow C-reactive protein, CMP, CBC, CRP * 25 hydroxy vitamin D * Continue digoxin 0.125 daily * Stop Toprol * Low-dose aspirin 81 mg daily * DC IV fluids * Echocardiogrampending * Regular diet as tolerated * Follow fluid status closely * Respiratory droplet precaution * CODE STATUS: Full code * VTE prophylaxis with Lovenox * Length of stay likely several days
[2020-02-19] MEDS: Enoxaparin 40 MG/0.4 ML Syringe SUBCUT SCH (13:14)
[2020-02-19] MEDS: Dexamethasone 4 MG Tab PO SCH (13:15)
[2020-02-19] MEDS ORDERED: REMDESIVIR 200 MG in Sodium Chloride 0.9% 250 ML IV ONE (15:04)
[2020-02-20] MEDS: cefTRIAXone 2 GM in Sodium Chloride 0.9% 100 ML IV SCH (08:07)
[2020-02-20] MEDS: Aspirin 81 MG Tab.EC PO SCH (08:20)
[2020-02-20] MEDS: Digoxin 125 MCG Tab PO SCH (08:20)
[2020-02-20] MEDS: Dexamethasone 4 MG Tab PO SCH (08:22)
[2020-02-20] MEDS: Doxycycline 100 MG in Sodium Chloride 0.9% 100 ML IV SCH ×2 (09:16→20:00)
--- NOTE | 2020-02-20 09:54 | PCM.PN ---
- General Info Date of Service: 02/20/20 Admission Dx/Problem (Free Text): Admission Diagnosis/Problem Admission Diagnosis/Problem Atrial fibrillation Subjective Update: Patient states he had a difficult night. He was anxious and had difficulty sleeping. He did start dexamethasone yesterday. He denies any worsening of shortness of breath. He did have 2 bowel movements yesterday. Patient was afebrile last night but did have 2 episodes of night sweats. Patient has been self pronating. His oxygen requirement has decreased from 5 L down to 2 L nasal cannula. Functional Status: Reports: Pain Controlled - Review of Systems General: Reports: Fatigue, Night Sweats HEENT: Reports: No Symptoms Pulmonary: Reports: Shortness of Breath Cardiovascular: Reports: No Symptoms Gastrointestinal: Reports: No Symptoms Neurological: Reports: No Symptoms Psychiatric: Reports: Anxiety - Patient Data Vitals - Most Recent: Last Vital Signs Temp 96.6 F L 02/20/20 08:00 Pulse 92 02/20/20 08:20 Resp 16 02/20/20 03:31 BP 98/66 02/20/20 08:22 Pulse Ox 94 L 02/20/20 08:22 Weight - Most Recent: 106.141 kg I&O - Last 24 Hours: Intake & Output 02/19/20 02/20/20 02/20/20 22:59 06:59 14:59 Intake Total 670 1000 Output Total 1400 350 Balance -730 650 Lab Results Last 24 Hours: Laboratory Results - last 24 hr 02/19/20 02/19/20 02/20/20 Range/Units 02:30 13:20 08:10 WBC 9.80 H (4.23-9.07) K/mm3 RBC 4.80 (4.63-6.08) M/mm3 Hgb 15.5 D (13.7-17.5) gm/dl Hct 45.5 (40.1-51.0) % MCV 94.8 H (79.0-92.2) fl MCH 32.3 H (25.7-32.2) pg MCHC 34.1 (32.2-35.5) g/dl RDW Std Deviation 53.1 H (35.1-43.9) fL Plt Count 242 (163-337) K/mm3 MPV 12.5 H (9.4-12.3) fl Neut % (Auto) 71.9 H (34.0-67.9) % Lymph % (Auto) 18.0 L (21.8-53.1) % Roosevelt % (Auto) 9.1 (5.3-12.2) % Eos % (Auto) 0 L (0.8-7.0) Baso % (Auto) 0.7 (0.1-1.2) % Neut # (Auto) 7.05 H (1.78-5.38) K/mm3 Lymph # (Auto) 1.76 (1.32-3.57) K/mm3 Roosevelt # (Auto) 0.89 H (0.30-0.82) K/mm3 Eos # (Auto) 0.00 L (0.04-0.54) K/mm3 Baso # (Auto) 0.07 (0.01-0.08) K/mm3 Manual Slide Review Normal smear D-Dimer, Quantitative (0.19-0.50) mg/L Sodium (136-145) mEq/L Potassium (3.5-5.1) mEq/L Chloride (98-107) mEq/L Carbon Dioxide (21-32) mEq/L Anion Gap (5-15) BUN (7-18) mg/dL Creatinine (0.7-1.3) mg/dL Est Cr Clr Drug Dosing mL/min Estimated GFR (MDRD) (>60) mL/min BUN/Creatinine Ratio (14-18) Glucose (80-115) mg/dL Calcium (8.5-10.1) mg/dL Phosphorus (2.6-4.7) mg/dL Magnesium (1.8-2.4) mg/dl Total Bilirubin (0.2-1.0) mg/dL AST (15-37) U/L ALT (16-63) U/L Alkaline Phosphatase (46-116) U/L C-Reactive Protein (<1.0) mg/dL Total Protein (6.4-8.2) g/dl Albumin (3.4-5.0) g/dl Globulin gm/dL Albumin/Globulin Ratio (1-2) Urine Color Dark yellow (Yellow) Urine Appearance Clear (Clear) Urine pH 6.5 (5.0-8.0) Ur Specific Stand[place] 1.020 (1.005-1.030) Urine Protein Negative (Negative) Urine Glucose (UA) Negative (Negative) Urine Ketones Negative (Negative) Urine Occult Blood Negative (Negative) Urine Nitrite Negative (Negative) Urine Bilirubin Negative (Negative) Urine Urobilinogen 1.0 (0.2-1.0) Ur Leukocyte Esterase Negative (Negative) Mycoplasma pneumon IgM Negative (NEGATIVE) 02/20/20 02/20/20 Range/Units 08:10 08:10 WBC (4.23-9.07) K/mm3 RBC (4.63-6.08) M/mm3 Hgb (13.7-17.5) gm/dl Hct (40.1-51.0) % MCV (79.0-92.2) fl MCH (25.7-32.2) pg MCHC (32.2-35.5) g/dl RDW Std Deviation (35.1-43.9) fL Plt Count (163-337) K/mm3 MPV (9.4-12.3) fl Neut % (Auto) (34.0-67.9) % Lymph % (Auto) (21.8-53.1) % Roosevelt % (Auto) (5.3-12.2) % Eos % (Auto) (0.8-7.0) Baso % (Auto) (0.1-1.2) % Neut # (Auto) (1.78-5.38) K/mm3 Lymph # (Auto) (1.32-3.57) K/mm3 Roosevelt # (Auto) (0.30-0.82) K/mm3 Eos # (Auto) (0.04-0.54) K/mm3 Baso # (Auto) (0.01-0.08) K/mm3 Manual Slide Review D-Dimer, Quantitative 1.27 H (0.19-0.50) mg/L Sodium 141 (136-145) mEq/L Potassium 4.0 (3.5-5.1) mEq/L Chloride 102 (98-107) mEq/L Carbon Dioxide 28 (21-32) mEq/L Anion Gap 15.0 (5-15) BUN 14 (7-18) mg/dL Creatinine 1.1 (0.7-1.3) mg/dL Est Cr Clr Drug Dosing 81.99 mL/min Estimated GFR (MDRD) > 60 (>60) mL/min BUN/Creatinine Ratio 12.7 L (14-18) Glucose 112 (80-115) mg/dL Calcium 9.1 (8.5-10.1) mg/dL Phosphorus 3.3 (2.6-4.7) mg/dL Magnesium 2.2 (1.8-2.4) mg/dl Total Bilirubin 0.5 (0.2-1.0) mg/dL AST 41 H (15-37) U/L ALT 63 (16-63) U/L Alkaline Phosphatase 49 (46-116) U/L C-Reactive Protein 11.6 H* (<1.0) mg/dL Total Protein 7.6 (6.4-8.2) g/dl Albumin 3.3 L (3.4-5.0) g/dl Globulin 4.3 gm/dL Albumin/Globulin Ratio 0.8 L (1-2) Urine Color (Yellow) Urine Appearance (Clear) Urine pH (5.0-8.0) Ur Specific Stand[place] (1.005-1.030) Urine Protein (Negative) Urine Glucose (UA) (Negative) Urine Ketones (Negative) Urine Occult Blood (Negative) Urine Nitrite (Negative) Urine Bilirubin (Negative) Urine Urobilinogen (0.2-1.0) Ur Leukocyte Esterase (Negative) Mycoplasma pneumon IgM (NEGATIVE) Aburey Results Last 24 Hours: Microbiology 02/19/20 04:50 Aerobic Blood Culture - Preliminary Blood - Venous - Lab Draw NO GROWTH AFTER 1 DAY Anaerobic Blood Culture - Preliminary NO GROWTH AFTER 1 DAY 02/19/20 04:40 Aerobic Blood Culture - Preliminary Blood - Venous NO GROWTH AFTER 1 DAY Anaerobic Blood Culture - Preliminary NO GROWTH AFTER 1 DAY Med Orders - Current: Current Medications Acetaminophen (Tylenol) 650 mg PO Q4H PRN PRN Reason: Pain (Mild 1-3)/fever Last Admin: 02/19/20 08:54 Dose: 650 mg Documented by: Aspirin (Halfprin) 81 mg PO DAILY [facility] Last Admin: 02/20/20 08:20 Dose: 81 mg Documented by: Dexamethasone (Dexamethasone) 6 mg PO DAILY [facility] Stop: 02/28/20 09:01 Last Admin: 02/20/20 08:22 Dose: 6 mg Documented by: Digoxin (Lanoxin) 125 mcg PO DAILY [facility] Last Admin: 02/20/20 08:20 Dose: 125 mcg Documented by: Enoxaparin Sodium (Lovenox) 40 mg SUBCUT Q24H [facility] Last Admin: 02/19/20 13:14 Dose: 40 mg Documented by: Ceftriaxone Sodium 2 gm/ (Sodium Chloride) 100 mls @ 200 mls/hr IV Q24H [facility] Last Admin: 02/20/20 08:07 Dose: 200 mls/hr Documented by: Doxycycline Hyclate 100 mg/ (Sodium Chloride) 100 mls @ 100 mls/hr IV Q12HR [facility] Last Admin: 02/20/20 09:16 Dose: 100 mls/hr Documented by: REMDESIVIR (EUA) 100 mg/ (Sodium Chloride) 100 mls @ 100 mls/hr IV Q24H [facility] Stop: 02/23/20 16:14 Ibuprofen (Motrin) 600 mg PO Q6H PRN PRN Reason: Pain/Fever Last Admin: 02/19/20 04:36 Dose: 600 mg Documented by: Ondansetron HCl (Zofran) 4 mg IV Q4H PRN PRN Reason: Nausea/Vomiting Last Admin: 02/18/20 12:15 Dose: 4 mg Documented by: Discontinued Medications Digoxin (Lanoxin) 250 mcg PO ONETIME ONE Stop: 02/18/20 05:11 Last Admin: 02/18/20 05:35 Dose: 250 mcg Documented by: Digoxin (Lanoxin) 250 mcg PO ONETIME ONE Stop: 02/18/20 11:01 Last Admin: 02/18/20 11:20 Dose: 250 mcg Documented by: Lactated Ringer's (Ringers, Lactated) 500 mls @ 999 mls/hr IV .BOLUS ONE Stop: 02/18/20 04:23 Last Admin: 02/18/20 03:59 Dose: 999 mls/hr Documented by: Lactated Ringer's (Ringers, Lactated) 1,000 mls @ 125 mls/hr IV ASDIRECTED [facility] Last Admin: 02/18/20 11:23 Dose: 125 mls/hr Documented by: Sodium Chloride (Normal Saline) 500 mls @ 999 mls/hr IV .BOLUS ONE Stop: 02/18/20 05:32 Last Admin: 02/18/20 05:15 Dose: 999 mls/hr Documented by: REMDESIVIR (EUA) 200 mg/ (Sodium Chloride) 250 mls @ 250 mls/hr IV ONETIME ONE Stop: 02/19/20 15:05 Last Admin: 02/19/20 15:58 Dose: 250 mls/hr Documented by: - Exam Quality Assessment: Supplemental Oxygen General: Alert, Oriented HEENT: Pupils Equal, Pupils Reactive, EOMI, Mucous Membr. Moist/[place] Neck: Supple Lungs: Clear to Auscultation, Normal Respiratory Effort Cardiovascular: Regular Rate, Regular Rhythm GI/Abdominal Exam: Normal Bowel Sounds, Soft, Non-Tender, No Organomegaly, No Distention, No Abnormal Bruit Extremities: Normal Inspection, Normal Range of Motion, Non-Tender, No Pedal Edema, Normal Capillary Refill Skin: Warm, Dry, Intact Psy/Mental Status: Alert, Normal Affect, Normal Mood Sepsis Event Note - Evaluation Sepsis Screening Result: No Definite Risk - Focused Exam Vital Signs: Vital Signs Temp Pulse Resp BP BP Pulse Ox 02/20/20 08:22 98/66 94 L 02/20/20 08:20 92 93 L 02/20/20 08:00 96.6 F L 96 02/20/20 07:40 90 L 02/20/20 07:20 90 L 02/20/20 07:00 91 L 02/20/20 06:40 92 L 02/20/20 06:20 95 02/20/20 06:00 94 L 02/20/20 05:40 93 L 02/20/20 05:20 94 L 02/20/20 05:00 95 02/20/20 04:40 94 L 02/20/20 04:20 94 L 02/20/20 04:00 94 L 02/20/20 03:40 97 02/20/20 03:31 96.8 F L 16 118/77 96 02/20/20 03:00 96.5 F L 20 95 02/20/20 02:00 95 02/20/20 01:00 96 02/20/20 00:00 97.8 F 16 119/68 95 02/19/20 23:00 96 02/19/20 22:00 98 - Problem List Review Problem List Initiated/Reviewed/Updated: Yes - My Orders Last 24 Hours: My Active Orders 02/19/20 09:00 Aspirin [Halfprin] 81 mg PO DAILY Digoxin [Lanoxin] 125 mcg PO DAILY Doxycycline [Vibramycin] 100 mg Sodium Chloride 0.9% [Normal Saline] 100 ml IV Q12HR 02/19/20 10:38 Admission Status [Patient Status] [ADT] Routine 02/19/20 11:16 Consult to Occupational Therapy [OT Evaluation and Treatment] [CONS] Routine PT Evaluation and Treatment [CONS] Routine 02/19/20 11:30 dexAMETHasone 6 mg PO DAILY 02/19/20 13:20 LEGIONELLA ANTIGEN [MREF] Routine STREP PNEUMONIAE ANTIGEN [MREF] Routine 02/19/20 14:10 RESPIRATORY PANEL Routine 02/19/20 15:02 IS (RT) [RT Incentive Spirometry] [RC] ASDIRECTED 02/19/20 19:39 Admission Status [Patient Status] [ADT] Routine 02/20/20 08:10 PROCALCITONIN [REF] Stat 02/20/20 15:15 Remdesivir (Eua) [Remdesivir (EUA)] 100 mg Sodium Chloride 0.9% [Normal Saline] 100 ml IV Q24H 02/21/20 05:11 BASIC METABOLIC PANEL,BMP [CHEM] AM C-REACTIVE PROTEIN [CHEM] AM CBC WITH AUTO DIFF [HEME] AM D-DIMER QUANTITATIVE [COAG] AM MAGNESIUM [CHEM] AM PHOSPHORUS [CHEM] AM 02/22/20 05:11 C-REACTIVE PROTEIN [CHEM] AM 02/23/20 05:11 C-REACTIVE PROTEIN [CHEM] AM 02/24/20 05:11 C-REACTIVE PROTEIN [CHEM] AM 02/25/20 05:11 C-REACTIVE PROTEIN [CHEM] AM - Assessment Assessment:: Assessment 02/18/2020day of admission * Atrial fibrillation with rapid ventricular response * Converted to sinus rhythm after second dose of digoxin 250 mcg * Morning dose of Toprol was held * Repeat EKG at 1312 hrs.: Sinus rhythm with ventricular rate of 87 bpm. Left atrial enlargement. * [id number] is 0 * Gastroenteritis/viral illness * Patient appears to be improved. 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 * He is at increased risk for capsular bacterial infection 02/19/2020 * Atrial fibrillation with rapid ventricular responseresolved * Patient is still in sinus rhythm with rate in the 80s to 90s * Loaded with digoxin yesterday. Now on 125 mcg daily * Stopped Toprol-XL * Awaiting echocardiogram results * Likely COVID-19 infection with hypoxemia * Patient has had worsening of oxygenation, elevated ferritin, positive d- dimer, elevated C-reactive protein and a normal white count. Although he has had 4 - COVID test he still has several suggestive features of COVID- 19. * I spoke with Dr. Renae in infectious disease at [facility] for [facility] in [place] who agreed that he still likely has COVID-19 and recommended starting remdesivir and steroids. * I was able to contact Amira at the [facility] department and she is sending a full course of remdesivir via recruitment director. He will get the first course as soon as we get it. * GI symptoms have significantly improved. * Dysuria with mild foul-smelling urine * UA negative for infection * Likely not clinically significant * Acute renal injury resolved * Estimated GFR greater than 60 02/20/2020 * Likely COVID-19 infection with hypoxemia and bilateral pneumonia * Improvement in oxygen requirement * No significant change in CBC, d-dimer, or CMP. * Slight increase in C-reactive protein; 9.6-->11.6 * Currently getting remdesivir, day 2, and dexamethasone, day 2 * On Rocephin and doxycycline, day 2 * CT angiogram of the chest done yesterday showed bilateral pneumonia and atelectasis. * Pneumococcal urine antigen, Legionella, and respiratory panel pending * Mycoplasma IgM antibodies negative * Atrial fibrillation with rapid ventricular responseresolved * He continues in sinus rhythm. * Currently on digoxin 125 mcg daily * Toprol still held with good blood pressure and rate control * Awaiting echocardiogram results * Dysuriaresolved * UA normal * Acute renal injuryresolved * Estimated GFR greater than 60 * History of asplenia * Increased risk for capsular bacterial infections * On Rocephin and doxycycline * Pneumococcal urine antigen, Legionella, and respiratory panel pending - Plan Plan:: Plan * ICU * Day 2 of 5 of remdesivir * Day 2 of dexamethasone 6 mg orally daily for 10 days * Continue Rocephin and doxycycline * Encourage prone positioning * If oxygen need increases will switch to high flow nasal cannula * Follow CMP, CBC, CRP, mag, phosphorus, d-dimer * 25 hydroxy vitamin D * Digoxin level in the morning * I's and O's with goal of neutral fluid balance * Continue digoxin 0.125 daily * Stop Toprol * Low-dose aspirin 81 mg daily * DC IV fluids * Echocardiogrampending * Regular diet as tolerated * Follow fluid status closely * Respiratory droplet precaution * CODE STATUS: Full code * VTE prophylaxis with Lovenox * Length of stay likely several days
[2020-02-20] MEDS: Enoxaparin 40 MG/0.4 ML Syringe SUBCUT SCH (12:11)
[2020-02-20] MEDS: REMDESIVIR 100 MG in Sodium Chloride 0.9% 100 ML IV SCH (15:39)
[2020-02-20 18:41] LABS: BORDETELLA PARAPERT IS1001 Not Detected (Not Detected)
[2020-02-21] MEDS: cefTRIAXone 2 GM in Sodium Chloride 0.9% 100 ML IV SCH (07:53)
[2020-02-21] MEDS: Aspirin 81 MG Tab.EC PO SCH (08:01)
[2020-02-21] MEDS: Digoxin 125 MCG Tab PO SCH (08:02)
[2020-02-21] MEDS: Dexamethasone 4 MG Tab PO SCH (08:02)
[2020-02-21] MEDS: Enoxaparin 40 MG/0.4 ML Syringe SUBCUT SCH (08:09)
[2020-02-21] MEDS: Doxycycline 100 MG in Sodium Chloride 0.9% 100 ML IV SCH ×2 (08:21→20:17)
--- NOTE | 2020-02-21 13:00 | PCM.PN ---
- General Info Date of Service: 02/21/20 Subjective Update: Sleeping on and off every night, waking up at least 3 times each evening Tolerating diet BM today Breathing stable and mildly improved Denies pleuritic chest pain - Patient Data Vitals - Most Recent: Last Vital Signs Temp 96.8 F L 02/21/20 07:50 Pulse 98 02/21/20 08:02 Resp 18 02/21/20 07:51 BP 112/67 02/21/20 07:51 Pulse Ox 94 L 02/21/20 07:51 Weight - Most Recent: 106.141 kg - Exam Quality Assessment: Supplemental Oxygen General: Alert, Oriented, Cooperative, No Acute Distress HEENT: Pupils Equal, Pupils Reactive, EOMI, Mucous Membr. Moist/[place] Neck: Supple, Trachea Midline, No JVD. No: Lymphadenopathy Lungs: Clear to Auscultation, Normal Respiratory Effort. No: Crackles, Rales, Rhonchi, Rub, Stridor, Wheezing Cardiovascular: Regular Rate, Regular Rhythm. No: Murmurs, Gallops, Rubs GI/Abdominal Exam: Normal Bowel Sounds, Soft, Non-Tender, Distended. No: Guarding, Rigid, Rebound Extremities: Normal Inspection, Normal Range of Motion, Non-Tender, No Pedal Edema, Normal Capillary Refill Peripheral Pulses: 2+: Radial (L), Radial (R), Dorsalis Pedis (L), Dorsalis Pedis (R) Skin: Warm, Dry, Intact Neurological: No New Focal Deficit Psy/Mental Status: Normal Affect, Normal Mood Sepsis Event Note - Evaluation Sepsis Screening Result: No Definite Risk - Problem List & Annotations (1) Suspected COVID-19 virus infection SNOMED Code(s): 520320483 Code(s): Z20.828 - CONTACT W AND EXPOSURE TO OTH VIRAL COMMUNICABLE DISEASES Status: Acute Current Visit: Yes (2) Acute hypoxemic respiratory failure SNOMED Code(s): 580725746 Code(s): J96.01 - ACUTE RESPIRATORY FAILURE WITH HYPOXIA Status: Acute Current Visit: Yes (3) Bilateral pneumonia SNOMED Code(s): 600438878 Code(s): J18.9 - PNEUMONIA, UNSPECIFIED ORGANISM Status: Acute Current Visit: Yes (4) Nausea and vomiting SNOMED Code(s): 21256650 Code(s): R11.2 - NAUSEA WITH VOMITING, UNSPECIFIED Status: Acute Current Visit: Yes (5) Acute kidney injury SNOMED Code(s): 13949987, 48757446 Code(s): N17.9 - ACUTE KIDNEY FAILURE, UNSPECIFIED Status: Acute Current Visit: Yes (6) Hypoalbuminemia SNOMED Code(s): 079982502 Code(s): E88.09 - OTH DISORDERS OF PLASMA-PROTEIN METABOLISM, NEC Status: Acute Current Visit: Yes (7) Hyponatremia SNOMED Code(s): 51863334 Code(s): E87.1 - HYPO-OSMOLALITY AND HYPONATREMIA Status: Acute Current Visit: Yes (8) Pleural thickening Status: Acute Current Visit: Yes (9) Ex-smoker for more than 1 year SNOMED Code(s): 51676182759765 Code(s): Z87.891 - PERSONAL HISTORY OF NICOTINE DEPENDENCE Status: Acute Current Visit: Yes (10) Leukocytosis SNOMED Code(s): 819854475, 561101813 Code(s): D72.829 - ELEVATED WHITE BLOOD CELL COUNT, UNSPECIFIED Status: Acute Current Visit: Yes (11) A-fib SNOMED Code(s): 71722935 Code(s): I48.91 - UNSPECIFIED ATRIAL FIBRILLATION Status: Acute Current Visit: Yes (12) Dehydration SNOMED Code(s): 74004794 Code(s): E86.0 - DEHYDRATION Status: Acute Current Visit: Yes (13) Acquired asplenia SNOMED Code(s): 804757264, 320097813 Code(s): Z90.81 - ACQUIRED ABSENCE OF SPLEEN Status: Acute Current Visit: Yes (14) Atrial fibrillation with rapid ventricular response SNOMED Code(s): 878140411409302 Code(s): I48.91 - UNSPECIFIED ATRIAL FIBRILLATION Status: Acute Current Visit: Yes - Problem List Review Problem List Initiated/Reviewed/Updated: Yes - Assessment Assessment:: Assessment of admission Atrial fibrillation with rapid ventricular response - Converted to sinus rhythm after second dose of digoxin 250 mcg - Morning dose of Toprol was held - Repeat EKG at 1312 hrs.: Sinus rhythm with ventricular rate of 87 bpm. Left atrial enlargement. - [id number] is 0 Gastroenteritis/viral illness - Patient appears to be improved. - He is afebrile and has not vomited or had a bowel movement since presentation to the emergency department - Electrolytes are normal - COVID PCR negative x3 Acute renal injury - Estimated GFR 44 - Creatinine 1.6 Asplenia - Splenectomy at 22 years old 2/2 to enlarged spleen - Up to date in vaccinations. He is at increased risk for capsular bacterial infection 02/19/2020 Atrial fibrillation with rapid ventricular responseresolved - Patient is still in sinus rhythm with rate in the 80s to 90s - Loaded with digoxin yesterday. Now on 125 mcg daily - Stopped Toprol-XL - Awaiting echocardiogram results Likely COVID-19 infection with hypoxemia - Patient has had worsening of oxygenation, elevated ferritin, positive d-dimer, elevated C-reactive protein and a normal white count. Although he has had 4 - COVID test he still has several suggestive features of COVID-19. - I spoke with Dr. Renae in infectious disease at [facility] for [facility] in [place] who agreed that he still likely has COVID-19 and recommended starting remdesivir and steroids. - I was able to contact Amira at the [facility] department and she is sending a full course of remdesivir via sharepoint designer developer. He will get the first course as soon as we get it. - GI symptoms have significantly improved. Dysuria with mild foul-smelling urine - UA negative for infection - Likely not clinically significant Acute renal injury resolved - Estimated GFR greater than 60 02/20/2020 Likely COVID-19 infection with hypoxemia and bilateral pneumonia - Improvement in oxygen requirement - No significant change in CBC, d-dimer, or CMP. - Slight increase in C-reactive protein; 9.6-->11.6 - Currently getting remdesivir, day 2, and dexamethasone, day 2 - On Rocephin and doxycycline, day 2 - CT angiogram of the chest done yesterday showed bilateral pneumonia and atelectasis. - Pneumococcal urine antigen, Legionella, and respiratory panel pending - Mycoplasma IgM antibodies negative Atrial fibrillation with rapid ventricular responseresolved - He continues in sinus rhythm. - Currently on digoxin 125 mcg daily - Toprol still held with good blood pressure and rate control - Awaiting echocardiogram results Dysuriaresolved - UA normal Acute renal injuryresolved - Estimated GFR greater than 60 History of asplenia - Increased risk for capsular bacterial infections - On Rocephin and doxycycline - Pneumococcal urine antigen, Legionella, and respiratory panel pending 02/21/2020 VS trends - MAP: 85-101 - Temp: 96.5-97.8 - HR: 61-95 - SatO2: >90% on 1-2LPM, on 1L since 6PM 02/19 I/Os - UO: 1,950 - Balance 24h: -280 - Balance since admission: +2,343 Lab results - WBC up from 9.8 to 14.24 (no bands) - Ddimer down from 1.27 to 0.91 - Mg down from 2.2 to 1.9 - PO4 up from 3.3 to 3.8 - CRP down from 11.6 to 5.4 - Procalcitonin 0.13 - RSV panel negative Blood cultures from 02/18 with no growth to date Rocephin, Doxycycline, Remdesivir and dexamethasone day 3 Digoxin level low at 0.3 Leukocytosis worsened likely due to steroids, no bandemia and infectious markers improving - Plan Plan:: Bilateral pneumonia, improving Acute hypoxemic respiratory failure, improving Suspected COVID-19 virus infection Acquired asplenia PLAN - Continue Remdesivir, Rocephin, Doxycycline and Dexamethasone - Continue O2 via nasal cannula, taper down as tolerated - F/U infectious serology - Prone positioning as tolerated - Encourage incentive spirometer use Atrial fibrillation, rate controlled, CHADS VASc-0 PLAN - Continue digoxin - F/U echocardiogram result - No need for anticoagulation - Cardiac monitoring Hypoalbuminemia PLAN - Dietary evaluation Acute kidney injury, resolved Hyponatremia, resolved Nausea and vomiting, resolved Volume depletion, resolved Rapid ventricular response, resolved PROPHYLAXIS DVT- Lovenox GI- not indicated CODE STATUS: FULL CODE DISPOSITION: Patient will remain admitted in ICU under maximum isolation to continue antibiotics, antiviral and steroids as well as O2 supplementation. Pending to complete antiviral, serology for other infections and weaning off O2 supplementation.
[2020-02-21] MEDS: REMDESIVIR 100 MG in Sodium Chloride 0.9% 100 ML IV SCH (15:31)
[2020-02-22] MEDS: cefTRIAXone 2 GM in Sodium Chloride 0.9% 100 ML IV SCH (08:21)
[2020-02-22] MEDS: Digoxin 125 MCG Tab PO SCH (08:22)
[2020-02-22] MEDS: Enoxaparin 40 MG/0.4 ML Syringe SUBCUT SCH (08:22)
[2020-02-22] MEDS: Dexamethasone 4 MG Tab PO SCH (08:22)
[2020-02-22] MEDS: Aspirin 81 MG Tab.EC PO SCH (08:22)
[2020-02-22] MEDS: Doxycycline 100 MG in Sodium Chloride 0.9% 100 ML IV SCH ×2 (08:23→20:31)
--- NOTE | 2020-02-22 12:11 | PCM.PN ---
- General Info Date of Service: 02/22/20 Subjective Update: Feeling great Slept most of the night, 6 hours on his belly BM this morning Tolerating diet No shortness of breath, pain or palpitations - Patient Data Vitals - Most Recent: Last Vital Signs Temp 96.5 F L 02/22/20 08:00 Pulse 106 H 02/22/20 08:22 Resp 16 02/22/20 08:00 BP 110/66 02/22/20 08:00 Pulse Ox 92 L 02/22/20 08:00 Weight - Most Recent: 105.233 kg - Exam Quality Assessment: DVT Prophylaxis. No: Supplemental Oxygen, Central Line/PICC, Urine Catheter General: Alert, Oriented, Cooperative, No Acute Distress HEENT: Pupils Equal, Pupils Reactive, EOMI, Mucous Membr. Moist/[place] Neck: Supple, Trachea Midline, No JVD, No Thyromegaly, +2 Carotid Pulse wo Bruit. No: Lymphadenopathy Lungs: Clear to Auscultation, Normal Respiratory Effort. No: Decreased Breath Sounds, Crackles, Rales, Rhonchi, Rub, Stridor, Wheezing Cardiovascular: Regular Rate, Regular Rhythm. No: Murmurs, Gallops, Rubs GI/Abdominal Exam: Normal Bowel Sounds, Soft, Non-Tender, Distended. No: Guard ing, Rigid, Rebound Extremities: Normal Inspection, Normal Range of Motion, Non-Tender, No Pedal Edema, Normal Capillary Refill Peripheral Pulses: 2+: Radial (L), Radial (R) Neurological: No New Focal Deficit Psy/Mental Status: Normal Affect, Normal Mood Sepsis Event Note - Evaluation Sepsis Screening Result: Sepsis Risk - Problem List & Annotations (1) Suspected COVID-19 virus infection SNOMED Code(s): 848318171 Code(s): Z20.828 - CONTACT W AND EXPOSURE TO OTH VIRAL COMMUNICABLE DISEASES Status: Acute Current Visit: Yes (2) Acute hypoxemic respiratory failure SNOMED Code(s): 755006490 Code(s): J96.01 - ACUTE RESPIRATORY FAILURE WITH HYPOXIA Status: Acute Current Visit: Yes (3) Bilateral pneumonia SNOMED Code(s): 446083559 Code(s): J18.9 - PNEUMONIA, UNSPECIFIED ORGANISM Status: Acute Current Visit: Yes (4) Nausea and vomiting SNOMED Code(s): 70230625 Code(s): R11.2 - NAUSEA WITH VOMITING, UNSPECIFIED Status: Acute Current Visit: Yes (5) Acute kidney injury SNOMED Code(s): 97040835, 26359635 Code(s): N17.9 - ACUTE KIDNEY FAILURE, UNSPECIFIED Status: Acute Current Visit: Yes (6) Hypoalbuminemia SNOMED Code(s): 592160173 Code(s): E88.09 - OTH DISORDERS OF PLASMA-PROTEIN METABOLISM, NEC Status: Acute Current Visit: Yes (7) Hyponatremia SNOMED Code(s): 67571376 Code(s): E87.1 - HYPO-OSMOLALITY AND HYPONATREMIA Status: Acute Current Visit: Yes (8) Pleural thickening Status: Acute Current Visit: Yes (9) Ex-smoker for more than 1 year SNOMED Code(s): 38474539948183 Code(s): Z87.891 - PERSONAL HISTORY OF NICOTINE DEPENDENCE Status: Acute Current Visit: Yes (10) Leukocytosis SNOMED Code(s): 623703713, 941103258 Code(s): D72.829 - ELEVATED WHITE BLOOD CELL COUNT, UNSPECIFIED Status: Acute Current Visit: Yes (11) A-fib SNOMED Code(s): 83625502 Code(s): I48.91 - UNSPECIFIED ATRIAL FIBRILLATION Status: Acute Current Visit: Yes (12) Dehydration SNOMED Code(s): 23955491 Code(s): E86.0 - DEHYDRATION Status: Acute Current Visit: Yes (13) Acquired asplenia SNOMED Code(s): 445322406, 925859056 Code(s): Z90.81 - ACQUIRED ABSENCE OF SPLEEN Status: Acute Current Visit: Yes (14) Atrial fibrillation with rapid ventricular response SNOMED Code(s): 303829878115809 Code(s): I48.91 - UNSPECIFIED ATRIAL FIBRILLATION Status: Acute Current Visit: Yes - Problem List Review Problem List Initiated/Reviewed/Updated: Yes - Assessment Assessment:: Assessment of admission Atrial fibrillation with rapid ventricular response - Converted to sinus rhythm after second dose of digoxin 250 mcg - Morning dose of Toprol was held - Repeat EKG at 1312 hrs.: Sinus rhythm with ventricular rate of 87 bpm. Left atrial enlargement. - [id number] is 0 Gastroenteritis/viral illness - Patient appears to be improved. - He is afebrile and has not vomited or had a bowel movement since presentation to the emergency department - Electrolytes are normal - COVID PCR negative x3 Acute renal injury - Estimated GFR 44 - Creatinine 1.6 Asplenia - Splenectomy at 22 years old 2/2 to enlarged spleen - Up to date in vaccinations. He is at increased risk for capsular bacterial infection 02/19/2020 Atrial fibrillation with rapid ventricular responseresolved - Patient is still in sinus rhythm with rate in the 80s to 90s - Loaded with digoxin yesterday. Now on 125 mcg daily - Stopped Toprol-XL - Awaiting echocardiogram results Likely COVID-19 infection with hypoxemia - Patient has had worsening of oxygenation, elevated ferritin, positive d-dimer, elevated C-reactive protein and a normal white count. Although he has had 4 - COVID test he still has several suggestive features of COVID-19. - I spoke with Dr. Renae in infectious disease at [facility] for [facility] in [place] who agreed that he still likely has COVID-19 and recommended starting remdesivir and steroids. - I was able to contact Amira at the [facility] department and she is sending a full course of remdesivir via private tutors and teachers. He will get the first course as soon as we get it. - GI symptoms have significantly improved. Dysuria with mild foul-smelling urine - UA negative for infection - Likely not clinically significant Acute renal injury resolved - Estimated GFR greater than 60 02/20/2020 Likely COVID-19 infection with hypoxemia and bilateral pneumonia - Improvement in oxygen requirement - No significant change in CBC, d-dimer, or CMP. - Slight increase in C-reactive protein; 9.6-->11.6 - Currently getting remdesivir, day 2, and dexamethasone, day 2 - On Rocephin and doxycycline, day 2 - CT angiogram of the chest done yesterday showed bilateral pneumonia and atelectasis. - Pneumococcal urine antigen, Legionella, and respiratory panel pending - Mycoplasma IgM antibodies negative Atrial fibrillation with rapid ventricular responseresolved - He continues in sinus rhythm. - Currently on digoxin 125 mcg daily - Toprol still held with good blood pressure and rate control - Awaiting echocardiogram results Dysuriaresolved - UA normal Acute renal injuryresolved - Estimated GFR greater than 60 History of asplenia - Increased risk for capsular bacterial infections - On Rocephin and doxycycline - Pneumococcal urine antigen, Legionella, and respiratory panel pending 02/21/2020 VS trends - MAP: 85-101 - Temp: 96.5-97.8 - HR: 61-95 - SatO2: >90% on 1-2LPM, on 1L since 6PM 02/19 I/Os - UO: 1,950 - Balance 24h: -280 - Balance since admission: +2,343 Lab results - WBC up from 9.8 to 14.24 (no bands) - Ddimer down from 1.27 to 0.91 - Mg down from 2.2 to 1.9 - PO4 up from 3.3 to 3.8 - CRP down from 11.6 to 5.4 - Procalcitonin 0.13 - RSV panel negative Blood cultures from 02/18 with no growth to date Rocephin, Doxycycline, Remdesivir and dexamethasone day 3 Digoxin level low at 0.3 Leukocytosis worsened likely due to steroids, no bandemia and infectious markers improving PLAN - Continue Remdesivir, Rocephin, Doxycycline and Dexamethasone - Continue O2 via nasal cannula, taper down as tolerated - F/U infectious serology - Prone positioning as tolerated - Encourage incentive spirometer use - Continue digoxin - F/U echocardiogram result 02/22/2020 VS trend - MAP 82-97 - Tmax 97.8 - HR 60-98x' - SatO2 > 90% - Off NC since 8PM 02/20 I/Os - UO: 2,100 - Balance past 24h: +280 - Balance since admission: +2,623 Lab results - WBC down from 14.24 to 13.96, no bands - Mag up from 1.9 to 2 - CRP down from 5.4 to 3.2 - DD mild increase from 0.91 to 1.34 Blood cultures negative x 3 days - Plan Plan:: Bilateral pneumonia, improving Acute hypoxemic respiratory failure, improving Suspected COVID-19 virus infection Acquired asplenia PLAN - Continue Remdesivir, Rocephin, Doxycycline and Dexamethasone - F/U infectious serology - Prone positioning as tolerated - Encourage incentive spirometer use Atrial fibrillation, rate controlled, CHADS VASc-0 PLAN - Continue digoxin - F/U echocardiogram result - No need for anticoagulation - Cardiac monitoring Hypoalbuminemia PLAN - Dietary evaluation Acute kidney injury, resolved Hyponatremia, resolved Nausea and vomiting, resolved Volume depletion, resolved Rapid ventricular response, resolved PROPHYLAXIS DVT- Lovenox GI- not indicated CODE STATUS: FULL CODE DISPOSITION: Patient will remain admitted in ICU under maximum isolation to continue antibiotics, antiviral and steroids, last dose tomorrow. Pending to complete antiviral, serology for other infections.
[2020-02-22] MEDS: REMDESIVIR 100 MG in Sodium Chloride 0.9% 100 ML IV SCH (15:07)
[2020-02-23] MEDS: cefTRIAXone 2 GM in Sodium Chloride 0.9% 100 ML IV SCH (06:31)
[2020-02-23] MEDS: Dexamethasone 4 MG Tab PO SCH (08:01)
[2020-02-23] MEDS: Aspirin 81 MG Tab.EC PO SCH (08:02)
[2020-02-23] MEDS: Digoxin 125 MCG Tab PO SCH (08:02)
[2020-02-23] MEDS: Enoxaparin 40 MG/0.4 ML Syringe SUBCUT SCH (08:02)
[2020-02-23] MEDS: Doxycycline 100 MG in Sodium Chloride 0.9% 100 ML IV SCH (08:03)
[2020-02-23] MEDS ORDERED: REMDESIVIR 100 MG in Sodium Chloride 0.9% 100 ML IV SCH (12:00)
--- NOTE | 2020-02-23 14:18 | PCM.DCSUM1 ---
Discharge Summary - Hospital Course HPI Initial Comments: 59-year-old male with a 5-day history of generalized malaise, fever, chills, headache, and mild cough. Patient states that last night he had worsening dizziness and lightheadedness. He felt like he was on fire in his scalp was burning. He was seen at the clinic 4 days ago, in the emergency department 3 days ago, and presented last night to the emergency department again. All 3 times he had a negative COVID test. He states he continues to have a fever which has been greater than 100 and shaking chills. He states he had nausea and vomiting over the weekend that stopped yesterday, but he did develop some diarrhea. 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 He has not had a bowel movement since arriving at the emergency department. Chest x-ray in the emergency department was negative. He is on Toprol-XL secondary to irregular heart rate. He states he was started on it approximately 12 years ago. He denies hypertension, coronary artery disease, or diabetes. He has never been placed on a blood thinner. In the emergency department he was found to be in A. fib with his rate in the low 100s up to 130. Patient was given a 500 mL normal saline bolus and started on 125 mL an hour. Emergency department provider called Dr. Roberson, police chief at [place] in [place] who recommended starting patient on digoxin 0.25 mg now and then again in 6 hours. Then continue with 0.125 mg daily as well as aggressive fluid management. When patient was brought to the floor for observation his heart rate stabilized mostly in the 80s and converted to sinus rhythm pulse ox did drop into the upper 80s between 87-89. He was started on 2 L nasal cannula. He received his second dose of digoxin. Initial lab work was only significant for WBC of 10.54, creatinine of 1.6, estimated GFR 44, AST 42, ALT 64. COVID was negative. Diagnosis: Stroke: No - Discharge Data Discharge Date: 02/23/20 Discharge Disposition: Home, Self-Care 01 Condition: Good - Referral to Home Health Primary Care Physician: Michelle Allison MD - Discharge Diagnosis/Problem(s) (1) Suspected COVID-19 virus infection SNOMED Code(s): 273207007 ICD Code: Z20.828 - CONTACT W AND EXPOSURE TO OTH VIRAL COMMUNICABLE DISEASES Status: Acute (2) Acute hypoxemic respiratory failure SNOMED Code(s): 296149972 ICD Code: J96.01 - ACUTE RESPIRATORY FAILURE WITH HYPOXIA Status: Acute (3) Bilateral pneumonia SNOMED Code(s): 144392917 ICD Code: J18.9 - PNEUMONIA, UNSPECIFIED ORGANISM Status: Acute (4) Nausea and vomiting SNOMED Code(s): 33565152 ICD Code: R11.2 - NAUSEA WITH VOMITING, UNSPECIFIED Status: Acute (5) Acute kidney injury SNOMED Code(s): 97390911, 88252671 ICD Code: N17.9 - ACUTE KIDNEY FAILURE, UNSPECIFIED Status: Acute (6) Hypoalbuminemia SNOMED Code(s): 083768250 ICD Code: E88.09 - OT DISORDERS OF PLASMA-PROTEIN METABOLISM, NEC Status: Acute (7) Hyponatremia SNOMED Code(s): 36420739 ICD Code: E87.1 - HYPO-OSMOLALITY AND HYPONATREMIA Status: Acute (8) Pleural thickening Status: Acute (9) Ex-smoker for more than 1 year SNOMED Code(s): 69183461551112 ICD Code: Z87.891 - PERSONAL HISTORY OF NICOTINE DEPENDENCE Status: Acute (10) Leukocytosis SNOMED Code(s): 708304762, 163632983 ICD Code: D72.829 - ELEVATED WHITE BLOOD CELL COUNT, UNSPECIFIED Status: Acute (11) A-fib SNOMED Code(s): 33975293 ICD Code: I48.91 - UNSPECIFIED ATRIAL FIBRILLATION Status: Acute (12) Dehydration SNOMED Code(s): 37287360 ICD Code: E86.0 - DEHYDRATION Status: Acute (13) Acquired asplenia SNOMED Code(s): 509286447, 351236616 ICD Code: Z90.81 - ACQUIRED ABSENCE OF SPLEEN Status: Acute (14) Atrial fibrillation with rapid ventricular response SNOMED Code(s): 169965598290190 ICD Code: I48.91 - UNSPECIFIED ATRIAL FIBRILLATION Status: Acute - Patient Summary/Data Consults: Consultations 02/19/20 11:16 Consult to Occupational Therapy [OT Evaluation and Treatment] [CONS] Routine PT Evaluation and Treatment [CONS] Routine Hospital Course: of admission Atrial fibrillation with rapid ventricular response - Converted to sinus rhythm after second dose of digoxin 250 mcg - Morning dose of Toprol was held - Repeat EKG at 1312 hrs.: Sinus rhythm with ventricular rate of 87 bpm. Left atrial enlargement. - [id number] is 0 Gastroenteritis/viral illness - Patient appears to be improved. - He is afebrile and has not vomited or had a bowel movement since presentation to the emergency department - Electrolytes are normal - COVID PCR negative x3 Acute renal injury - Estimated GFR 44 - Creatinine 1.6 Asplenia - Splenectomy at 22 years old / to enlarged spleen - Up to date in vaccinations. He is at increased risk for capsular bacterial infection 02/19/2020 Atrial fibrillation with rapid ventricular responseresolved - Patient is still in sinus rhythm with rate in the 80s to 90s - Loaded with digoxin yesterday. Now on 125 mcg daily - Stopped Toprol-XL - Awaiting echocardiogram results Likely COVID-19 infection with hypoxemia - Patient has had worsening of oxygenation, elevated ferritin, positive d-dimer, elevated C-reactive protein and a normal white count. - Although he has had 4 - COVID test he still has several suggestive features of COVID-19. - I spoke with Dr. Renae in infectious disease at [facility] for [facility] in [facility] [place] who agreed that he still likely has COVID-19 and recommended starting remdesivir and steroids. - I was able to contact Amira at the [place] public health department and she is sending a full course of remdesivir via dietitian helper. He will get the first course as soon as we get it. - GI symptoms have significantly improved. Dysuria with mild foul-smelling urine - UA negative for infection - Likely not clinically significant Acute renal injury resolved - Estimated GFR greater than 60 02/20/2020 Likely COVID-19 infection with hypoxemia and bilateral pneumonia - Improvement in oxygen requirement - No significant change in CBC, d-dimer, or CMP. - Slight increase in C-reactive protein; 9.6-->11.6 - Currently getting remdesivir, day 2, and dexamethasone, day 2 - On Rocephin and doxycycline, day 2 - CT angiogram of the chest done yesterday showed bilateral pneumonia and atelectasis. - Pneumococcal urine antigen, Legionella, and respiratory panel pending - Mycoplasma IgM antibodies negative Atrial fibrillation with rapid ventricular responseresolved - He continues in sinus rhythm. - Currently on digoxin 125 mcg daily - Toprol still held with good blood pressure and rate control - Awaiting echocardiogram results Dysuriaresolved - UA normal Acute renal injuryresolved - Estimated GFR greater than 60 History of asplenia - Increased risk for capsular bacterial infections - On Rocephin and doxycycline - Pneumococcal urine antigen, Legionella, and respiratory panel pending 02/21/2020 VS trends - MAP: 85-101 - Temp: 96.5-97.8 - HR: 61-95 - SatO2: >90% on 1-2LPM, on 1L since 6PM 02/19 I/Os - UO: 1,950 - Balance 24h: -280 - Balance since admission: +2,343 Lab results - WBC up from 9.8 to 14.24 (no bands) - Ddimer down from 1.27 to 0.91 - Mg down from 2.2 to 1.9 - PO4 up from 3.3 to 3.8 - CRP down from 11.6 to 5.4 - Procalcitonin 0.13 - RSV panel negative Blood cultures from 02/18 with no growth to date Rocephin, Doxycycline, Remdesivir and dexamethasone day 3 Digoxin level low at 0.3 Leukocytosis worsened likely due to steroids, no bandemia and infectious markers improving PLAN - Continue Remdesivir, Rocephin, Doxycycline and Dexamethasone - Continue O2 via nasal cannula, taper down as tolerated - F/U infectious serology - Prone positioning as tolerated - Encourage incentive spirometer use - Continue digoxin - F/U echocardiogram result 02/22/2020 VS trend - MAP 82-97 - Tmax 97.8 - HR 60-98x' - SatO2 > 90% - Off NC since 8PM 02/20 I/Os - UO: 2,100 - Balance past 24h: +280 - Balance since admission: +2,623 Lab results - WBC down from 14.24 to 13.96, no bands - Mag up from 1.9 to 2 - CRP down from 5.4 to 3.2 - DD mild increase from 0.91 to 1.34 Blood cultures negative x 3 days PLAN - Continue Remdesivir, Rocephin, Doxycycline and Dexamethasone - F/U infectious serology - Prone positioning as tolerated - Encourage incentive spirometer use - Continue digoxin 02/23/2020 VS trend - MAP 80-88 - Tmax 97.5 - HR 56-94x' - SatO2 > 92% on room air UO 2,100 CRP trending down No complaints from patient Received dose #5 of antibiotics and Remdesivir Transitioned Dexamethasone to Prednisone to complete 5 more days Discussed importance of quarantine once at home - Patient Instructions Diet: Usual Diet as Tolerated - Discharge Plan *PRESCRIPTION DRUG MONITORING PROGRAM REVIEWED*: Not Applicable *COPY OF PRESCRIPTION DRUG MONITORING REPORT IN PATIENT KELE[place]I: Not Applicable Prescriptions/Med Rec: Digoxin 125 mcg PO DAILY #30 tablet predniSONE [Prednisone] 40 mg PO DAILY #10 tablet Home Medications: Home Meds Aspirin [Halfprin] 81 mg PO DAILY 03/10/19 [History] Cholecalciferol (Vitamin D3) [Vitamin D3] 4,000 unit PO DAILY 02/15/20 [History] Green Tea [place] Extract [Green Tea Extract] 500 mg PO DAILY 02/15/20 [History] Ascorbic Acid [Vitamin C] 500 mg PO DAILY 02/18/20 [History] Multivit-Min/Folic/Vit K/Lycop [Men's Multivitamin Tablet] 1 tab PO DAILY 02/18/20 [History] Saw/Vit E/Sod [place]/Lyc/Beta/Pyg [Prostate Health Caplet] 1 tab PO DAILY 02/18/20 [History] Digoxin 125 mcg PO DAILY #30 tablet 02/23/20 [Rx] predniSONE [Prednisone] 40 mg PO DAILY #10 tablet 02/23/20 [Rx] Patient Handouts: COVID-19 Frequently Asked Questions, COVID-19, Prevent the Spread of COVID-19 if You Are Sick - CDC Forms: ED Department Discharge Referrals: Michelle Allison MD [Primary Care Provider] - 03/01/20 7:15 am - Discharge Summary/Plan Comment DC Time >30 min.: No - General Info Date of Service: 02/23/20 Subjective Update: Slept OK Tolerated diet Ambulating [place] No complaints - Patient Data Vitals - Most Recent: Last Vital Signs Temp 96.5 F L 02/23/20 11:58 Pulse 95 02/23/20 08:02 Resp 16 02/23/20 11:58 BP 111/78 02/23/20 11:58 Pulse Ox 93 L 02/23/20 11:58 Weight - Most Recent: 107.501 kg - Exam General: Reports: Alert, Oriented, Cooperative, No Acute Distress HEENT: Reports: Pupils Equal, Pupils Reactive, EOMI, Mucous Membr. Moist/[place] Neck: Reports: Supple, Trachea Midline, No JVD. Denies: Lymphadenopathy Lungs: Reports: Clear to Auscultation, Normal Respiratory Effort. Denies: Crackles, Rales, Rhonchi, Rub, Stridor, Wheezing Cardiovascular: Reports: Regular Rate, Regular Rhythm. Denies: Tachycardia, Murmurs, Gallops GI/Abdominal Exam: Normal Bowel Sounds, Soft, Non-Tender, Distended. No: Guarding, Rigid, Rebound Extremities: Normal Inspection, Normal Range of Motion, Non-Tender, No Pedal Edema, Normal Capillary Refill Skin: Reports: Warm, Dry, Intact Neurological: Reports: No New Focal Deficit
== END 2020-02-23 16:30 | disposition home or self-care (01) | DRG 137 ==
LOC: JD.ED 03:36 → JD.MS 07:35 → OBSVTOIN 02-19 10:38 → JD.ICU 02-19 14:24
PROVIDERS: ADMIT Family Medicine; ATTEND Family Medicine
PROC: 8E0ZXY6 Isolation (ICD-10-PCS; principal; 2020-02-19)
PROC: XW033E5 Introduction of Remdesivir Anti-infective into Peripheral Vein, Percutaneous Approach, New Technology Group 5 (ICD-10-PCS; 2020-02-20)
PROC: XW033E5 Introduction of Remdesivir Anti-infective into Peripheral Vein, Percutaneous Approach, New Technology Group 5 (ICD-10-PCS; 2020-02-21)
PROC: XW033E5 Introduction of Remdesivir Anti-infective into Peripheral Vein, Percutaneous Approach, New Technology Group 5 (ICD-10-PCS; 2020-02-22)
PROC: XW033E5 Introduction of Remdesivir Anti-infective into Peripheral Vein, Percutaneous Approach, New Technology Group 5 (ICD-10-PCS; 2020-02-23)
DX: U07.1 COVID-19 (principal); J12.89 Other viral pneumonia; J96.01 Acute respiratory failure with hypoxia; N17.9 Acute kidney failure, unspecified; E88.09 Other disorders of plasma-protein metabolism, not elsewhere classified; E87.1 Hypo-osmolality and hyponatremia; I48.91 Unspecified atrial fibrillation; E86.0 Dehydration; K52.9 Noninfective gastroenteritis and colitis, unspecified; H54.7 Unspecified visual loss; E86.9 Volume depletion, unspecified; R30.0 Dysuria; Z87.891 Personal history of nicotine dependence; Z90.81 Acquired absence of spleen; Z88.0 Allergy status to penicillin; Z88.1 Allergy status to other antibiotic agents; Z79.82 Long term (current) use of aspirin; Z79.899 Other long term (current) drug therapy; Z90.49 Acquired absence of other specified parts of digestive tract; Z99.81 Dependence on supplemental oxygen
CPT/HCPCS: 36415; 71045; 71045-26; 71275; 71275-26; 80048; 80053; 80061; 80162; 81003; 82306; 82550; 82728; 83605; 83615; 83735; 83880; 84100; 84145; 84484; 85007; 85025; 85027; 85379; 85610; 85730; 86140; 86738; 87040; 87486; 87581; 87632; 87798; 87899; 93005; 93306; 96360; 96361; 96365; 96367; 96372; 96375; 97161-GP; 97165-GO; 99220; 99232; 99238; 99285; 99285-25; A9270-GY; G0378; J0696; J1650; J2405; J3490; J7030; J7050; J7120; J8540; U0002

== ENCOUNTER 2022-03-24 08:45 | Emergency (ER) | payer BC ==
[2022-03-24] MEDS ORDERED: HYDROmorphone 0.5 MG/0.5 ML Syringe IVPUSH ONE ×2 (09:31→12:40)
[2022-03-24] MEDS ORDERED: Metoclopramide 10 MG/2 ML SDV IVPUSH ONE (09:31)
[2022-03-24] MEDS ORDERED: Dextrose 5%-Lactated Ringers 1,000 ML IV SCH (09:45)
[2022-03-24 09:50] LABS: ESTIMATED GFR 85 mL/min (>60)
[2022-03-24] MEDS ORDERED: Ketorolac 30 MG/ML SDV IVPUSH SCH (12:45)
== END 2022-03-24 15:19 | disposition home or self-care (01) ==
LOC: JD.ED 08:45
DX: R51.9 Headache, unspecified (principal); I10 Essential (primary) hypertension; Z88.0 Allergy status to penicillin; Z88.1 Allergy status to other antibiotic agents; Z79.82 Long term (current) use of aspirin; Z79.899 Other long term (current) drug therapy; Z86.16 Personal history of COVID-19; Z90.49 Acquired absence of other specified parts of digestive tract
CPT/HCPCS: 36415; 70450; 71045; 80053; 83735; 85025; 86140; 96361; 96374; 96375; 96376; 99284; J1170; J1885; J2765; J7121